=== PATIENT | female | born 1990 | race Caucasian/White ===

== ENCOUNTER 2017-11-18 14:59 | Emergency (ER) | payer SELFPAY ==
[2017-11-18 15:22] VITALS: BP 110/57
[2017-11-18] MEDS ORDERED: KETOROLAC TROMETHAMINE 60 MG/2 ML SDV IM ONE (16:00)
--- NOTE | 2017-11-18 16:02 | ER Document Report ---
HPI - HPI Patient complains to provider of: dental pain Onset: Other Onset/Duration: Intermittent Quality of pain: Throbbing Severity: Severe Pain Level: 5 Context: Patient states she has had toothache to left lower molar for 1-1/2 weeks. To top right teeth started hurting about a day and a half ago. She has not called a dentist for an appointment. 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 Associated Symptoms: None Exacerbated by: Food Relieved by: Denies Similar symptoms previously: Yes Recently seen / treated by doctor: No - ROS ROS below otherwise negative: Yes Systems Reviewed and Negative: Yes All other systems reviewed and negative - CONSTITUTIONAL Constitutional: DENIES: Fever - EENT EENT: DENIES: Sore Throat, Congestion - NEURO Neurology: DENIES: Headache - CARDIOVASCULAR Cardiovascular: DENIES: Chest pain - RESPIRATORY Respiratory: DENIES: Trouble Breathing - REPRODUCTIVE Reproductive: DENIES: : - DERM Skin Color: Normal Past Medical History - General Information source: Patient - Social History Smoking Status: Current Every Day Smoker Cigarette use (# per day): Yes Chew tobacco use (# tins/day): No Frequency of alcohol use: None Drug Abuse: None Lives with: Spouse/Significant other Family History: DM, Hypertension, Malignancy, Other - father-pancreatitis, ulcer Patient has suicidal ideation: No Patient has homicidal ideation: No Pulmonary Medical History: Reports: Hx Asthma - when she was little Neurological Medical History: Reports: Hx Migraine GI Medical History: Reports: Hx Ulcer - stomach 1 yr ago- reports never treated Psychiatric Medical History: Reports: Hx Anxiety, Hx Bipolar Disorder, Hx Depression, Hx Post Traumatic Stress Disorder Past Surgical History: Reports: Hx Oral Surgery - Immunizations Immunizations up to date: Yes Hx Diphtheria, Pertussis, Tetanus Vaccination: Yes Vertical Provider Document - CONSTITUTIONAL Agree With Documented VS: Yes Exam Limitations: No Limitations General Appearance: WD/WN - INFECTION CONTROL TRAVEL OUTSIDE OF THE [place]. IN LAST 30 DAYS: No - HEENT HEENT: Normal ENT Exam, Normocephalic Mouth Diagram: 1 - decay, no gum swelling 2 - decay, no gum swelling - NECK Neck: Normal Inspection. negative: Lymphadenopathy-Left, Lymphadenopathy-Right - RESPIRATORY Respiratory: Breath Sounds Normal, No Respiratory Distress - CARDIOVASCULAR Cardiovascular: Regular Rate, Regular Rhythm - MUSCULOSKELETAL/EXTREMETIES Musculoskeletal/Extremeties: MAEW - NEURO Level of Consciousness: Awake, Alert, Appropriate - DERM Integumentary: Warm, Dry Course - Vital Signs Vital signs: Temp Pulse Resp BP Pulse Ox 98.3 F 76 110/57 L 99 11/18/17 15:20 11/18/17 15:20 11/18/17 15:20 11/18/17 15:20 Discharge - Discharge Clinical Impression: Pain due to dental caries Condition: Good Disposition: HOME, SELF-CARE Instructions: Clindamycin ([facility]), Toothache ([facility]) Additional Instructions: TOOTHACHE: Your pain is due to dental decay. The tooth must be repaired in order for you to feel better. You will, therefore, be referred to a dentist. We do not have dentists on the staff at [facility]. Severe swelling or drainage around a tooth usually means a dental abscess. This also requires evaluation and treatment by the dentist, but antibiotics may be prescribed while awaiting dental treatment. You should be rechecked immediately if you develop major swelling of the face, increasing pain, a lump in the jaw or gums, headache, difficulty swallowing, or fever. CLINDAMYCIN: You have been given a prescription for the antibiotic clindamycin. It is often prescribed for infections in the mouth, such as dental infections or abscesses, and for skin infections due to MRSA. It's important that you take all the medication, unless instructed otherwise by your physician. Failure to complete the entire course can result in relapse of your condition. Common side effects of antibiotics include nausea, intestinal cramping, or diarrhea. Women may develop vaginal yeast infections, and babies can get yeast (thrush) in the mouth following the use of antibiotics. Contact your physician if you develop significant side effects from this medication. Allergy to this antibiotic can result in hives, wheezing, faintness, or itching. If symptoms of allergy occur, stop the medication and call the doctor. FOLLOW-UP CARE: You have been referred for follow-up care to the dentists listed below. Call the dentists office for an appointment as you were instructed or within the next two days. If you experience worsening or a significant change in your symptoms, notify the physician immediately or return to the Emergency Department at any time for re-evaluation. [facility] [address] [place], [place] [phone] [facility] [address] [place] [address] [facility] [address] [facility] [address] [facility] [address] [email or web address] [address] [place] [address] Tuesday- 8:00am to 5:00 pm Will see patients from other [facility]. Charges based on income and family size and accepts Medicare, Medicaid, and Insurances Will pull molars [facility] [id number] Hours of Operation 8:00 am - 4:30 pm weekdays The following dental offices accept Medicaid: [facility] [address] Villa Dr. Perez Dr. Jacques Dr. Arthur Denny Johnson [place], and [facility] oral surgery Dr. Lopez ([place]) Dr. Cosme ([place]) [facility] Drs. Javier and Bayron ([place]) Dr. Corbett ([place]) [facility] Dr. Cordero ([place]) Drs. Wilson and Scholar ([place]bi Tran) Medicaid Care Line Prescriptions: Clindamycin HCl 150 mg PO QID #28 capsule Ibuprofen 600 mg PO TID PRN #15 tablet PRN Reason: Referrals: [facility] [Outside] - Follow up as needed
[2017-11-18] MEDS ORDERED: LIDOCAINE 2% VISCOUS SOLN 20 ML UDCUP PO ONE (16:06)
== END 2017-11-18 16:22 | disposition home or self-care (01) ==
LOC: ER 14:59
DX: K02.9 Dental caries, unspecified (principal); F17.210 Nicotine dependence, cigarettes, uncomplicated
CPT/HCPCS: 99282; 96372; J1885; J3490

== ENCOUNTER 2018-03-13 16:38 | Emergency (ER) | payer SELFPAY ==
[2018-03-13] MEDS ORDERED: NORMAL SALINE 1000 ML 1,000 ML IV ONE (16:55)
[2018-03-13] MEDS ORDERED: PIPERACILLIN/TAZOBACTAM 4.5 GM VIAL IV ONE (16:55)
--- NOTE | 2018-03-13 17:05 | ER Document Report ---
ED Medical Screen (RME) - General Chief Complaint: Other Stated Complaint: SWOLLEN LEFT ANKLE/RADIATING PAIN UP BODY Time Seen by Provider: 03/13/18 17:03 Notes: 27-year-old female presents to the ER with a red swollen ankle. Patient is having fever and rapid heart rate. Patient stated sometimes she can be very anxious. However she states she feels terrible she aches all over she states also she has some shoulder pain on the left and some chest discomfort. She denies any illicit drug use. Denies abdominal pain. Feels very warm having hot flashes than chills. TRAVEL OUTSIDE OF THE U.S. IN LAST 30 DAYS: No - Related Data Allergies/Adverse Reactions: cephalexin monohydrate [From Keflex] Allergy (Verified 10/24/15 08:39) promethazine HCl [From Phenergan] Allergy (Verified 10/24/15 08:39) rash Past Medical History - Past Medical History Cardiac Medical History: Denies: Hx Coronary Artery Disease, Hx Hypertension Pulmonary Medical History: Reports: Hx Asthma - when she was little Denies: Hx Tuberculosis Neurological Medical History: Reports: Hx Migraine. Denies: Hx Seizures Endocrine Medical History: Denies: Hx Diabetes Mellitus Type 1, Hx Diabetes Mellitus Type 2 Renal/ Medical History: Denies: Hx Peritoneal Dialysis GI Medical History: Reports: Hx Ulcer - stomach 1 yr ago- reports never treated Skin Medical History: Denies Hx MRSA Psychiatric Medical History: Reports: Hx Anxiety, Hx Bipolar Disorder, Hx Depression, Hx Post Traumatic Stress Disorder Past Surgical History: Reports: Hx Oral Surgery. Denies: Hx Hysterectomy, Hx Pacemaker - Immunizations Immunizations up to date: Yes Hx Diphtheria, Pertussis, Tetanus Vaccination: Yes Physical Exam - Vital signs Vitals: Temp Pulse Resp BP Pulse Ox 102.8 F H 141 H 20 120/79 100 03/13/18 16:44 03/13/18 16:44 03/13/18 16:44 03/13/18 16:44 03/13/18 16:44 - Notes Notes: Left ankle has cellulitis extending from the dorsum of the foot all the way up to just above the ankle. It is warm to touch I feel no area of fluctuance. There are strong dorsalis pedis pulses this area is very hot and warm to touch Course - Re-evaluation Re-evalutation: 03/13/18 17:05 Patient obviously has cellulitis fever and tachycardia. The patient does have SIRS criteria. We will start the sepsis protocol. We will do empiric Zosyn. - Vital Signs Vital signs: Temp Pulse Resp BP Pulse Ox 102.8 F H 141 H 20 120/79 100 03/13/18 16:44 03/13/18 16:44 03/13/18 16:44 03/13/18 16:44 03/13/18 16:44
--- NOTE | 2018-03-13 17:35 | RADIOLOGY REPORT (SQ) ---
EXAM DESCRIPTION: CHEST SINGLE VIEW COMPLETED DATE/TIME: 03/13/2018 5:20 pm REASON FOR STUDY: fever COMPARISON: 07/11/2013 EXAM PARAMETERS: NUMBER OF VIEWS: One view. TECHNIQUE: Single frontal radiographic view of the chest acquired. RADIATION DOSE: NA LIMITATIONS: None. FINDINGS: LUNGS AND PLEURA: Rounded areas of opacification are seen in both upper lobes and in the r ight lung laterally. MEDIASTINUM AND HILAR STRUCTURES: No masses. Contour normal. HEART AND VASCULAR STRUCTURES: Heart normal in size. Normal vasculature. BONES: No acute findings. HARDWARE: None in the chest. OTHER: No other significant finding. IMPRESSION: Multicentric pneumonia. Possible septic emboli? TECHNICAL DOCUMENTATION: JOB ID: [id number] [employer]- All Rights Reserved Reading location - IP/workstation name: [email or web address]
[2018-03-13 19:08] LABS: VENOUS BLOOD BASE EXCESS 1.2 mmol/L; VENOUS BLOOD HCO3 27.2 mmol/L (20-32); VENOUS BLOOD PCO2 47.9 mmHg (35-63); VENOUS BLOOD PH 7.37 (7.30-7.42)
[2018-03-13 19:14] LABS: HEMATOCRIT 41.5 % (36.0-47.0); INTERNATIONAL RATION (INR) 1.04; MEAN CORPUSCULAR HGB CONC 33.8 g/dL (32.0-36.0); MEAN CORPUSCULAR VOLUME 95 fl (80-97); PLATELET COUNT 105 10^3/uL (150-450); PROTHROMBIN TIME 14.1 SEC (11.4-15.4); RED BLOOD COUNT 4.39 10^6/uL (3.72-5.28); RED CELL DISTRIBUTION WIDTH 14.5 % (11.5-14.0); WHITE BLOOD COUNT 11.3 10^3/uL (4.0-10.5)
[2018-03-13] MEDS ORDERED: VANCOMYCIN HCL INJ 1000 MG VIAL IV ONE (19:25)
[2018-03-13] MEDS ORDERED: HYDROMORPHONE HCL INJ/PF 2 MG/ML AMPULE IV ONE (19:29)
[2018-03-13] MEDS ORDERED: ONDANSETRON HCL INJ/PF 4 MG/2 ML SDV IV ONE (19:29)
[2018-03-13 19:33] LABS: ALANINE AMINOTRANSFERASE 98 U/L (9-52); ALBUMIN 3.5 g/dL (3.5-5.0); ALKALINE PHOSPHATASE 86 U/L (38-126); ANION GAP 14 (5-19); ASPARTATE AMINO TRANSFERASE 49 U/L (14-36); BILIRUBIN,DIRECT 0.4 mg/dL (0.0-0.4); BLOOD UREA NITROGEN 7 mg/dL (7-20); CALCIUM 8.7 mg/dL (8.4-10.2); CARBON DIOXIDE 22 mmol/L (22-30); CHLORIDE 96 mmol/L (98-107); GLUCOSE 113 mg/dL (75-110); POTASSIUM 3.5 mmol/L (3.6-5.0); SODIUM 132.4 mmol/L (137-145); TOTAL PROTEIN 7.2 g/dL (6.3-8.2)
--- NOTE | 2018-03-13 19:39 | ER Document Report ---
ED General - General Chief Complaint: Ankle Pain Stated Complaint: SWOLLEN LEFT ANKLE/RADIATING PAIN UP BODY Time Seen by Provider: 03/13/18 17:03 TRAVEL OUTSIDE OF THE U.[place]. IN LAST 30 DAYS: No - HPI Notes: 27-year-old female with history of IV drug use presents with pain, redness, and swelling in her left ankle that she noticed yesterday. She states her last IV drug use was 1 month ago. She was "roughhousing" and reports pain to her left arm today. She has some bruising noted to her forearm. She reports diffuse pain to her entire left arm. She denies any chest pain or shortness of breath. She has had chills, but denies any documented fevers. Denies pain with urination. She has nausea without vomiting. No abdominal pain or diarrhea. Denies any injuries to her ankle. No bug bites. Denies injecting drugs into her foot or ankle. - Related Data Allergies/Adverse Reactions: cephalexin monohydrate [From Keflex] Allergy (Verified 10/24/15 08:39) promethazine HCl [From Phenergan] Allergy (Verified 10/24/15 08:39) rash Past Medical History - Social History Smoking Status: Current Every Day Smoker Chew tobacco use (# tins/day): No Frequency of alcohol use: None Drug Abuse: Marijuana, Other - IV drug use Family History: DM, Hypertension, Malignancy, Other - father-pancreatitis, ulcer Patient has suicidal ideation: No Patient has homicidal ideation: No - Past Medical History Cardiac Medical History: Denies: Hx Coronary Artery Disease, Hx Hypertension Pulmonary Medical History: Reports: Hx Asthma - when she was little Denies: Hx Tuberculosis Neurological Medical History: Reports: Hx Migraine. Denies: Hx Seizures Endocrine Medical History: Denies: Hx Diabetes Mellitus Type 1, Hx Diabetes Mellitus Type 2 Renal/ Medical History: Denies: Hx Peritoneal Dialysis GI Medical History: Reports: Hx Ulcer - stomach 1 yr ago- reports never treated Skin Medical History: Denies Hx MRSA Psychiatric Medical History: Reports: Hx Anxiety, Hx Bipolar Disorder, Hx Depression, Hx Post Traumatic Stress Disorder Past Surgical History: Reports: Hx Oral Surgery. Denies: Hx Hysterectomy, Hx Pacemaker - Immunizations Immunizations up to date: Yes Hx Diphtheria, Pertussis, Tetanus Vaccination: Yes Review of Systems - Review of Systems Notes: Constitutional: Positive for chills. No documented fever HENT: Negative for sore throat. Eyes: Negative for visual changes. Cardiovascular: Negative for chest pain. Respiratory: Negative for shortness of breath. Gastrointestinal: Negative for abdominal pain, vomiting or diarrhea. Positive for nausea Genitourinary: Negative for dysuria. Musculoskeletal: Negative for back pain. Positive for pain and swelling to left ankle. Positive for pain entire left arm. Skin: Positive for skin lesions Neurological: Positive for headache. No focal weakness or numbness 10 point ROS negative except as marked above and in HPI. Physical Exam - Vital signs Vitals: Temp Pulse Resp BP Pulse Ox 102.8 F H 141 H 20 120/79 100 03/13/18 16:44 03/13/18 16:44 03/13/18 16:44 03/13/18 16:44 03/13/18 16:44 - Notes Notes: PHYSICAL EXAMINATION: GENERAL: Well-appearing, well-nourished. Appears older than stated age. HEAD: Atraumatic, normocephalic. EYES: Pupils equal round and reactive to light, extraocular movements intact, conjunctiva are normal. ENT: nares patent, oropharynx clear without exudates. Moist mucous membranes. NECK: Normal range of motion, supple without lymphadenopathy LUNGS: Breath sounds clear to auscultation bilaterally and equal. No wheezes rales or rhonchi. HEART: Tachycardic rate. Normal rhythm. No chest wall tenderness. ABDOMEN: Soft, nontender, normoactive bowel sounds. No guarding, no rebound. No masses appreciated. EXTREMITIES: Pain to entire left arm. Patient resists any movement of shoulder , elbow, or hand. She has no swelling or erythema appreciated. No crepitus. Patient has erythema, warmth, and swelling to left lateral malleolus. Any range of motion of ankle produces pain. Strong palpable pulses. No streaking appreciated upper leg. NEUROLOGICAL: Cranial nerves grossly intact. Normal speech, normal gait. Normal sensory and motor exams. PSYCH: Anxious, uncooperative. SKIN: Cellulitis left ankle as noted. Multiple areas of scarring consistent with IV drug use. Several small pustules appreciated near buttocks. Course - Re-evaluation Re-evalutation: 03/13/18 19:38 Patient febrile and tachycardic. Chest x-ray suspicious for septic pulmonary emboli. Bedside ultrasound suspicious for tricuspid valve vegetation from endocarditis. X-ray left ankle and shoulder ordered. CT chest ordered. IV antibiotics Zosyn and vancomycin ordered. 3 blood cultures ordered. 03/13/18 22:52 Patient refusing any further attempts at IV placement. CT will not perform CT angiogram using left EJ. Patient also has urinary tract infection. X-rays of ankle and shoulder are unremarkable. Pain improved. Discussed with Dr. Tsai, mud mill tender, at [facility] regarding concern for tricuspid valve vegetation and endocarditis as a source of infection. He accepted patient in transfer under Dr. Maldonado. - Vital Signs Vital signs: Temp Pulse Resp BP Pulse Ox 98.4 F 141 H 20 120/79 100 03/13/18 22:11 03/13/18 16:44 03/13/18 16:44 03/13/18 16:44 03/13/18 16:44 - Laboratory Result Diagrams: 03/13/18 18:53 03/13/18 18:53 Laboratory results interpreted by me: 03/13/18 03/13/18 03/13/18 18:52 18:53 18:53 WBC 11.3 H RDW 14.5 H Plt Count 105 L Band Neutrophils % 6 H Lymphocytes % (Manual) 9 L Monocytes % (Manual) 14 H Abs Neuts (Manual) 8.7 H Abs Monocytes (Manual) 1.6 H Sodium 132.4 L Potassium 3.5 L Chloride 96 L Creatinine 0.47 L Glucose 113 H POC Glucose 111 H AST 49 H ALT 98 H Urine Blood Urine Urobilinogen Ur Leukocyte Esterase 03/13/18 19:10 WBC RDW Plt Count Band Neutrophils % Lymphocytes % (Manual) Monocytes % (Manual) Abs Neuts (Manual) Abs Monocytes (Manual) Sodium Potassium Chloride Creatinine Glucose POC Glucose AST ALT Urine Blood SMALL H Urine Urobilinogen 4.0 H Ur Leukocyte Esterase MODERATE H Procedures - Additional Procedures IV insertion Additional Procedures: IV insertion - Left external jugular 20 G peripheral IV placed without difficulty under sterile conditions. Critical Care Note - Critical Care Note Total time excluding time spent on procedures (mins): 45 - Critical care time spent obtaining history from patient or surrogate, discussions with consultants , development of treatment plan with patient or surrogate, evaluation of patient 's response to treatment, examination of patient, ordering and performing treatments and interventions, ordering and review of laboratory studies, re- evaluation of patient's condition, ordering and review of radiographic studies and review of old charts Discharge - Discharge Clinical Impression: Pulmonary infiltrate Endocarditis Qualifiers: Endocarditis type: infective Infective endocarditis organism: unspecified organism Chronicity: acute Qualified Code(s): I33.0 - Acute and subacute infective endocarditis Cellulitis Qualifiers: Site of cellulitis: extremity Site of cellulitis of extremity: lower extremity Laterality: left Qualified Code(s): L03.116 - Cellulitis of left lower limb Condition: Fair Disposition: [facility]
[2018-03-13 19:47] LABS: APPEARANCE,URINE SLIGHTLY-CLOUDY; BILIRUBIN,URINE NEGATIVE (NEGATIVE); COLOR,URINE YELLOW; GLUCOSE, URINE NEGATIVE (NEGATIVE); KETONES,URINE NEGATIVE (NEGATIVE); LEUKOCYTE ESTERASE,URINE MODERATE (NEGATIVE); NITRITE,URINE NEGATIVE (NEGATIVE); PROTEIN,URINE NEGATIVE (NEGATIVE)
[2018-03-13 19:52] LABS: ABSOLUTE MONOCYTES # (MANUAL) 1.6 10^3/uL (0.1-1.4); ABSOLUTE NEUTROPHILS# (MANUAL) 8.7 10^3/uL (1.7-8.2); BAND NEUTROPHILS % (MANUAL) 6 % (3-5); BASOPHILS % (MANUAL) 0 % (0-2); EOSINOPHILS % (MANUAL) 0 % (0-6); LYMPHOCYTES % (MANUAL) 9 % (13-45); MONOCYTES % (MANUAL) 14 % (3-13); SEGMENTED NEUTROPHILS % (MAN) 71 % (42-78); TOTAL CELLS COUNTED 100
[2018-03-13 19:53] LABS: OVALOCYTES SLIGHT; TEAR DROP CELLS SLIGHT; TOXIC VACUOLATION PRESENT
[2018-03-13 19:54] LABS: PLATELET COMMENT DECREASED
[2018-03-13 19:56] LABS: NT PRO BNP 78 pg/mL (<125)
[2018-03-13 19:59] LABS: TROPONIN I < 0.012 ng/mL
[2018-03-13] MEDS ORDERED: PIPERACILLIN/TAZOBACTAM 3.375 GM VIAL IV ONE (20:23)
--- NOTE | 2018-03-13 20:31 | EKG REPORT ---
SEVERITY:- BORDERLINE ECG - SINUS TACHYCARDIA BORDERLINE T ABNORMALITIES, INFERIOR LEADS : Confirmed by: iMles Ayala MD 13-Mar-2018 20:31:00
--- NOTE | 2018-03-13 21:11 | RADIOLOGY REPORT (SQ) ---
EXAM DESCRIPTION: ANKLE LEFT AP/LATERAL COMPLETED DATE/TIME: 03/13/2018 8:47 pm REASON FOR STUDY: Left ankle pain and swelling COMPARISON: 09/27/2012 NUMBER OF VIEWS: Two views. TECHNIQUE: AP and lateral radiographic images acquired of the left ankle. LIMITATIONS: None. FINDINGS: MINERALIZATION: Normal. BONES: No acute fracture or dislocation. No worrisome bone lesions. JOINTS: No effusions. SOFT TISSUES: No soft tissue swelling. No foreign body. OTHER: No other significant finding. IMPRESSION: NEGATIVE STUDY OF THE LEFT ANKLE. NO RADIOGRAPHIC EVIDENCE OF ACUTE INJURY. TECHNICAL DOCUMENTATION: JOB ID: [id number] [employer]- All Rights Reserved Reading location - IP/workstation name: [email or web address]
--- NOTE | 2018-03-13 21:11 | RADIOLOGY REPORT (SQ) ---
EXAM DESCRIPTION: SHOULDER LEFT 2 OR MORE VIEWS COMPLETED DATE/TIME: 03/13/2018 8:47 pm REASON FOR STUDY: Left shoulder pain COMPARISON: None. NUMBER OF VIEWS: Three views. TECHNIQUE: Internal rotation, external rotation, and Y view images acquired of the left shoulder. LIMITATIONS: None. FINDINGS: MINERALIZATION: Normal. BONES: No acute fracture or dislocation. No worrisome bone lesions. JOINTS: No dislocation. VISUALIZED LUNGS AND RIBS: No pneumothorax. No rib fracture. SOFT TISSUES: No radiopaque foreign body. OTHER: No other significant finding. IMPRESSION: NEGATIVE STUDY OF THE LEFT SHOULDER. NO RADIOGRAPHIC EVIDENCE OF ACUTE INJURY. TECHNICAL DOCUMENTATION: JOB ID: [id number] [employer]- All Rights Reserved Reading location - IP/workstation name: [email or web address]
[2018-03-13] MEDS ORDERED: ACETAMINOPHEN 325 MG TABLET PO ONE (21:26)
[2018-03-13 21:31] LABS: URINE BARBITURATES SCREEN NEGATIVE; URINE BENZODIAZEPINES SCREEN NEGATIVE; URINE COCAINE SCREEN NEGATIVE; URINE MARIJUANA (THC) SCREEN NEGATIVE; URINE METHADONE SCREEN NEGATIVE; URINE PHENCYCLIDINE SCREEN NEGATIVE
[2018-03-13] MEDS ORDERED: LORAZEPAM INJ 2 MG/1 ML VIAL IV ONE (22:10)
--- NOTE | 2018-03-13 23:33 | RADIOLOGY REPORT (SQ) ---
EXAM DESCRIPTION: CT CHEST WITH IV CONTRAST COMPLETED DATE/TME: 03/13/2018 19:29 CLINICAL HISTORY: 27 years Female, Septic pulmonary emboli Comparison: None. Technique: IV contrast. Coronal and sagittal reformat. This exam was performed according to our departmental dose-optimization program, which includes automated exposure control, adjustment of the mA and/or kV according to patient size and/or use of iterative reconstruction technique. [facility]: Dose Right [facility]: CareDose [facility]: Dose Right [facility]: Teradose 4D [facility]: [employer] LIMITATIONS: None Findings: Multifocal bilateral subpleural wedge-shaped opacities and nodules with some cavitation suggestive of septic emboli. Minimal left pleural effusion. Inferior neck, axillae, mediastinum, airway, lymphatics, heart, vasculature, upper abdomen, and musculoskeleton appear otherwise unremarkable. Impression: Septic pulmonary emboli pattern.Differential etiologies include infectious, inflammatory, and neoplastic processes.
[2018-03-14] MEDS ORDERED: HYDROMORPHONE HCL INJ/PF 2 MG/ML AMPULE IV ONE ×3 (03:20→13:56)
[2018-03-14] MEDS ORDERED: HEPARIN SOD (PORCINE) 1,000 UNIT/ML 10 ML VIAL IV ONE (13:06)
[2018-03-14] MEDS ORDERED: HEPARIN SODIUM,PORCINE/D5W 25,000 UNIT/250 ML RTUINJ IV PRN (13:06)
--- NOTE | 2018-03-14 13:08 | ER Document Report ---
Doctor's Note Notes: 03/14/18 13:07 27-year-old female. Pending transfer at this time. Noted to have pulmonary embolism. Noted also that could be due to endocarditis. Discussed case with the radiologist. I am going to go ahead and order an echo as we are waiting for transport. I am also going to start patient on anticoagulation therapy to be safe. Patient is requiring hourly doses of high amount of narcotics. I have just been told that it would likely be greater than 24 hours still until patient has a bed. Will call other facilities to see if we can facilitate a quicker transfer at this time.
[2018-03-14] MEDS ORDERED: HEPARIN SODIUM,PORCINE/D5W 25,000 UNIT/250 ML RTUINJ IV ONE (13:14)
[2018-03-14] MEDS ORDERED: PIPERACILLIN/TAZOBACTAM 3.375 GM VIAL IV SCH ×2 (14:15→15:00)
[2018-03-14] MEDS ORDERED: RINGERS SOLUTION,LACTATED 1,000 ML IV ONE (14:17)
[2018-03-14] MEDS ORDERED: ONDANSETRON HCL INJ/PF 4 MG/2 ML SDV IV PRN (14:27)
[2018-03-14] MEDS ORDERED: LORAZEPAM INJ 2 MG/1 ML VIAL IV PRN (14:27)
[2018-03-14] MEDS ORDERED: HYDROMORPHONE HCL INJ/PF 2 MG/ML AMPULE IV PRN (14:27)
[2018-03-14] MEDS ORDERED: VANCOMYCIN HCL INJ 1000 MG VIAL IV SCH ×2 (14:30)
[2018-03-14] MEDS ORDERED: ACETAMINOPHEN 325 MG TABLET PO ONE (15:28)
[2018-03-14 15:33] LABS: HEMATOCRIT 40.2 % (36.0-47.0); HEMOGLOBIN 13.5 g/dL (12.0-15.5); MEAN CORPUSCULAR HEMOGLOBIN 31.7 pg (27.0-33.4); MEAN CORPUSCULAR HGB CONC 33.5 g/dL (32.0-36.0); MEAN CORPUSCULAR VOLUME 95 fl (80-97); PLATELET COUNT 188 10^3/uL (150-450); RED BLOOD COUNT 4.25 10^6/uL (3.72-5.28); WHITE BLOOD COUNT 13.4 10^3/uL (4.0-10.5)
--- NOTE | 2018-03-14 15:40 | ER Document Report ---
Doctor's Note Notes: 03/14/18 15:34 Patient is still awaiting transfer. She has had a slight recurrence of fever to 100.1. Treated with Tylenol. 3 separate blood cultures positive for gram- positive cocci in clusters. Urine culture positive for gram-negative rods. Standing orders written for Zosyn and vancomycin as well as Ativan, Dilaudid, and Zofran. Fluids continued as patient continues to be tachycardic with borderline blood pressure around 100 systolic. Patient started on heparin this morning. Heparin discontinued as there is limited available data sets suggest neither anti-coagulant therapy nor aspirin to reduce the risk of embolism in patients with infective endocarditis. Called of [facility] and patient still on the waiting list. Called [facility] and discussed with Rosa Teresa, hospitalist who graciously accepted patient to the PCU. Patient and family updated. Patient stable for transfer. Patient continues to be tachypneic, lungs clear. No murmur appreciated. No significant change in left ankle erythema and swelling. Patient currently sedated from Ativan. 03/14/18 15:37 Temp Pulse Resp BP BP Pulse Ox 03/14/18 15:00 30 H 97 03/14/18 14:37 100.1 F 03/14/18 14:31 30 H 136/59 H 96 03/14/18 14:30 47 H 95 03/14/18 14:01 33 H 116/52 L 99 03/14/18 14:00 38 H 98 03/14/18 13:31 43 H 124/79 99 03/14/18 13:30 34 H 100 03/14/18 13:02 32 H 123/88 H 99 03/14/18 13:01 41 H 98 03/14/18 13:00 22 H 100 03/14/18 12:31 34 H 103/69 98 03/14/18 12:30 41 H 98 03/14/18 12:01 32 H 111/63 99 03/14/18 12:00 27 H 03/14/18 11:31 35 H 100/58 L 98 03/14/18 11:30 41 H 100 03/14/18 11:01 45 H 120/66 96 03/14/18 11:00 38 H 98 03/14/18 10:32 23 H 126/73 H 99 03/14/18 10:31 22 H 100 03/14/18 10:01 23 H 132/92 H 100 03/14/18 10:00 23 H 96 03/14/18 09:31 45 H 128/83 H 97 03/14/18 09:30 46 H 98 03/14/18 09:21 36 H 137/76 H 99 03/14/18 09:20 27 H 100 03/14/18 09:00 23 H 94 03/14/18 08:33 24 H 137/79 H 98 03/14/18 08:00 31 H 99 03/14/18 07:05 24 H 137/79 H 98 03/14/18 07:04 16 98 03/14/18 07:00 28 H 95 03/14/18 06:00 37 H 100 03/14/18 05:00 32 H 97 03/14/18 04:00 31 H 96 03/14/18 03:00 20 95 03/14/18 02:32 20 127/84 H 95 03/14/18 02:31 21 H 03/14/18 02:00 20 93 03/14/18 01:00 21 H 03/14/18 00:53 98.4 F 03/14/18 00:49 23 H 124/73 03/14/18 00:48 23 H 03/14/18 00:02 21 H 127/113 H 03/14/18 00:01 17 100 03/14/18 00:00 18 03/13/18 22:11 98.4 F 03/13/18 22:00 19 03/13/18 16:44 102.8 F H 141 H 20 120/79 100 03/14/18 15:40 Abnormal - 24 hr 03/13/18 03/13/18 03/13/18 18:52 18:53 18:53 WBC 11.3 H RDW 14.5 H Plt Count 105 L Band Neutrophils % 6 H Lymphocytes % (Manual) 9 L Monocytes % (Manual) 14 H Abs Neuts (Manual) 8.7 H Abs Monocytes (Manual) 1.6 H Sodium 132.4 L Potassium 3.5 L Chloride 96 L Creatinine 0.47 L Glucose 113 H POC Glucose 111 H AST 49 H ALT 98 H Urine Blood Urine Urobilinogen Ur Leukocyte Esterase 03/13/18 19:10 WBC RDW Plt Count Band Neutrophils % Lymphocytes % (Manual) Monocytes % (Manual) Abs Neuts (Manual) Abs Monocytes (Manual) Sodium Potassium Chloride Creatinine Glucose POC Glucose AST ALT Urine Blood SMALL H Urine Urobilinogen 4.0 H Ur Leukocyte Esterase MODERATE H Chest X-Ray 03/13/18 16:55 IMPRESSION: Multicentric pneumonia. Possible septic emboli? Ankle X-Ray 03/13/18 19:29 IMPRESSION: NEGATIVE STUDY OF THE LEFT ANKLE. NO RADIOGRAPHIC EVIDENCE OF ACUTE INJURY. Shoulder X-Ray 03/13/18 19:29 IMPRESSION: NEGATIVE STUDY OF THE LEFT SHOULDER. NO RADIOGRAPHIC EVIDENCE OF ACUTE INJURY.
[2018-03-14] MEDS ORDERED: NORMAL SALINE 250 ML IV ONE (16:04)
[2018-03-14] MEDS ORDERED: HEPARIN SOD (PORCINE) 1,000 UNIT/ML 10 ML VIAL IV PRN (16:07)
[2018-03-14 16:10] LABS: ABSOLUTE LYMPHOCYTES# (MANUAL) 1.1 10^3/uL (0.5-4.7); ABSOLUTE MONOCYTES # (MANUAL) 1.3 10^3/uL (0.1-1.4); ABSOLUTE NEUTROPHILS# (MANUAL) 10.9 10^3/uL (1.7-8.2); ANISOCYTOSIS SLIGHT; BAND NEUTROPHILS % (MANUAL) 1 % (3-5); BASOPHILS % (MANUAL) 1 % (0-2); EOSINOPHILS % (MANUAL) 0 % (0-6); LYMPHOCYTES % (MANUAL) 8 % (13-45); MONOCYTES % (MANUAL) 10 % (3-13); PLATELET COMMENT ADEQUATE; PLATELET LARGE PRESENT; SEGMENTED NEUTROPHILS % (MAN) 80 % (42-78); TOTAL CELLS COUNTED 100; TOXIC GRANULATION SLIGHT; TOXIC VACUOLATION PRESENT
[2018-03-14 19:26] VITALS: BP 111/66
== END 2018-03-14 17:20 | disposition short-term general hospital (02) ==
LOC: ER 16:38
DX: I33.0 Acute and subacute infective endocarditis (principal); L03.116 Cellulitis of left lower limb; J18.9 Pneumonia, unspecified organism; N39.0 Urinary tract infection, site not specified; R00.0 Tachycardia, unspecified; R06.82 Tachypnea, not elsewhere classified; S50.10XA Contusion of unspecified forearm, initial encounter; X58.XXXA Exposure to other specified factors, initial encounter; L08.9 Local infection of the skin and subcutaneous tissue, unspecified; R51 Headache; F41.9 Anxiety disorder, unspecified; F12.10 Cannabis abuse, uncomplicated; F19.10 Other psychoactive substance abuse, uncomplicated; M79.602 Pain in left arm; F17.200 Nicotine dependence, unspecified, uncomplicated; Z88.1 Allergy status to other antibiotic agents; Z88.8 Allergy status to other drugs, medicaments and biological substances
CPT/HCPCS: 96376; 93005; 99285; 96361; 96375; 96365; 96366; 96367; 36415; 87040; 87086; 82962; 85025; 85610; 87077; 87088; 80053; 81001; 84484; 87186; 80307; 82803; 83605; 83880; 73600; 71045; 73030; 71260; 93010; J1644 ×2; J1170 ×2; J2060; J2405; J7030; J7050; J3370 ×2; J2543 ×2

== ENCOUNTER 2018-05-31 12:21 | Emergency (ER) | payer SELFPAY ==
[2018-05-31] MEDS ORDERED: CLINDAMYCIN 900 MG/D5W RTU 900 MG/50 ML RTUPB IV ONE (14:43)
--- NOTE | 2018-05-31 14:51 | ER Document Report ---
ED General - General Chief Complaint: Facial Swelling Stated Complaint: SWOLLEN NOSE Time Seen by Provider: 05/31/18 14:31 Mode of Arrival: Ambulatory Information source: Patient, Relative Notes: 27-year-old female with PTSD, bipolar disorder, IV drug abuse presents with complaint of facial swelling that started 1 day prior to arrival. Patient states that she had a small pimple on the bridge of her nose that she popped 2 days ago and yesterday woke up with facial swelling. She denies any fever, chills, purulent drainage from the site. Patient does have a complex history where she was recently admitted for endocarditis at [facility] for over 1 month. Patient states that upon discharge she was doing well. She does admit to occasionally still using heroin. Her last use was a few days ago. She denies any direct injection into her face. TRAVEL OUTSIDE OF THE [place] IN LAST 30 DAYS: No - HPI Onset: Yesterday Onset/Duration: Gradual Quality of pain: Achy Associated symptoms: denies: Fever, Headache, Nausea, Vomiting, Shortness of breath Exacerbated by: Other Relieved by: Denies Similar symptoms previously: No Recently seen / treated by doctor: Yes - Related Data Allergies/Adverse Reactions: cephalexin monohydrate [From Keflex] Allergy (Verified 05/31/18 12:23) promethazine HCl [From Phenergan] Allergy (Verified 05/31/18 12:23) rash vancomycin Allergy (Verified 05/31/18 12:23) Past Medical History - General Information source: Patient, Relative, [facility] Records - Social History Smoking Status: Current Every Day Smoker Chew tobacco use (# tins/day): No Frequency of alcohol use: None Drug Abuse: Heroin, Methamphetamine Lives with: Family Family History: DM, Hypertension, Malignancy, Other - father-pancreatitis, ulcer Patient has suicidal ideation: No Patient has homicidal ideation: No - Past Medical History Cardiac Medical History: Denies: Hx Coronary Artery Disease, Hx Hypertension Pulmonary Medical History: Reports: Hx Asthma - as a child Denies: Hx Tuberculosis Neurological Medical History: Reports: Hx Migraine. Denies: Hx Seizures Endocrine Medical History: Denies: Hx Diabetes Mellitus Type 1, Hx Diabetes Mellitus Type 2 Renal/ Medical History: Denies: Hx Peritoneal Dialysis GI Medical History: Reports: Hx Ulcer - stomach 1 yr ago- reports never treated Skin Medical History: Denies Hx MRSA Psychiatric Medical History: Reports: Hx Anxiety, Hx Bipolar Disorder, Hx Depression, Hx Post Traumatic Stress Disorder Past Surgical History: Reports: Hx Oral Surgery. Denies: Hx Hysterectomy, Hx Pacemaker - Immunizations Immunizations up to date: Yes Hx Diphtheria, Pertussis, Tetanus Vaccination: Yes Review of Systems - Review of Systems Notes: REVIEW OF SYSTEMS: CONSTITUTIONAL : Denies fever, chills, or sweats. Denies recent illness. Denies weight loss, recent hospitalizations. EENT: Denies visual changes, eye pain. Denies sore throat, oral lesions, difficulty swallowing. CARDIOVASCULAR: Denies chest pain. Denies palpitations. Denies lower extremity edema. RESPIRATORY: Denies cough. Denies shortness of breath, wheezing. GASTROINTESTINAL: Denies abdominal pain or distention. Denies nausea, vomiting , or diarrhea. Denies blood in vomitus, stools, or per rectum. Denies black, tarry stools. Denies constipation. GENITOURINARY: Denies difficulty urinating, painful urination, frequency, blood in urine, or vaginal discharge. MUSCULOSKELETAL: Denies back or neck pain or stiffness. Denies joint pain or swelling. SKIN: Denies rash. HEMATOLOGIC : Denies easy bruising or bleeding. LYMPHATIC: Denies swollen glands. NEUROLOGICAL: Denies confusion or altered mental status. Denies loss of consciousness. Denies dizziness or lightheadedness. Denies headache. Denies weakness or paralysis. Denies problems difficulty with ambulation, slurred speech. Denies sensory loss, numbness, or tingling. Denies seizures. PSYCHIATRIC: Denies anxiety or stress. Denies depression, suicidal ideation, or homicidal ideation. Denies visual or auditory hallucinations. Physical Exam - Vital signs Vitals: Temp Pulse Resp BP Pulse Ox 98.3 F 97 14 122/68 100 05/31/18 13:14 05/31/18 13:14 05/31/18 13:14 05/31/18 13:14 05/31/18 13:14 - Notes Notes: PHYSICAL EXAMINATION: GENERAL: Well-appearing, well-nourished and in no acute distress. HEAD: Atraumatic, normocephalic. EYES: Pupils equal round and reactive to light, extraocular movements intact, conjunctiva are normal. ENT: Nares patent, swelling of the nasal bridge with associated forehead swelling, mild erythema, no fluctuance, induration. Oropharynx clear without exudates. Moist mucous membranes. NECK: Normal range of motion, supple without lymphadenopathy LUNGS: Breath sounds clear to auscultation bilaterally and equal. No wheezes rales or rhonchi. HEART: Regular rate and rhythm without murmurs ABDOMEN: Soft, nontender, nondistended abdomen. No guarding, no rebound. No masses appreciated. Female : deferred Musculoskeletal: Normal range of motion, no pitting or edema. No cyanosis. NEUROLOGICAL: Cranial nerves grossly intact. Normal speech, normal gait. Normal sensory, motor exams PSYCH: Normal mood, normal affect. SKIN: Warm, Dry, normal turgor. Course - Re-evaluation Re-evalutation: 27-year-old female presents with complaint of facial swelling that started 2 days prior to arrival. Patient states that she had a small pimple on the bridge of her nose which she popped and the next day noticed swelling of her nose, forehead and under her eyes. She denies any fever, chills, nausea, vomiting. Upon arrival vital signs stable. Lab work and imaging were ordered but not obtained. Because of the patient's history of IV drug use she is a difficult stick and after 2 attempts the patient is now refusing. She is requesting p.o. medications and discharge home. After performing a Medical Screening Examination, I spoke with the patient at length in regards to leaving the hospital against medical advice. I do not believe the patient should leave but the patient is alert oriented x4, understands the risks and benefits of staying and leaving including disability and . Pt understands that she can return at any time for further care and is more than welcome to do so. Pt verbalizes this understanding. 05/31/18 15:29 Patient refusing further IV attempts. She states that she wants medication by mouth and to be discharged home. 05/31/18 15:53 I spoke to the patient again regarding her refusal for further IV attempts. I did make her aware that it is imperative with her history that we are able to obtain blood work and imaging. She is refusing an will sign out AGAINST MEDICAL ADVICE. Patient is alert and oriented and shows capacity and understanding of her situation. Patient was provided clindamycin and discharge instructions. 05/31/18 16:03 06/01/18 12:54 06/01/18 12:56 - Vital Signs Vital signs: Temp Pulse Resp BP Pulse Ox 98.6 F 97 18 124/72 100 05/31/18 16:08 05/31/18 16:08 05/31/18 16:08 05/31/18 16:08 05/31/18 16:08 Discharge - Discharge Clinical Impression: Facial cellulitis, Facial abscess suspected, IV drug abuse Condition: Good Disposition: AGAINST MEDICAL ADVICE Instructions: Cellulitis ([facility]) Additional Instructions: The rash is likely due to infection of your skin. You need to take the antibiotics as prescribed. Do not stop even if the rash goes away until you have completed all the antibiotics. The area of redness was traced out here in the emergency department with a marking pen. You need to return to emergency department if the redness spreads outside of this area by more than 2 cm in any direction. You should also return if you develop fevers with temperature greater than 101, persistent vomiting, worsening pain, or have any other symptoms that are concerning to you. Follow up with your [id number] hours for further care or return to the ED IMMEDIATELY if symptoms worsen or you have any concerns. If you cannot afford to follow up with your primary care physician a list of low cost clinics have been provided at the end of your discharge papers as well. Most prescribed medications have multiple side effects. The safest thing to do is when filling your prescription speak to your pharmacist regarding possible interactions with your normal home medications and over the counter medications such as Ibuprofen, Tylenol, Benadryl. If you experience any symptoms that cause you discomfort or concern you should discontinue the medication immediately and return to the emergency room or call your primary care physician. After performing a Medical Screening Examination, I spoke with the patient at length in regards to leaving the hospital against medical advice. I do not believe the patient should leave but the patient is alert oriented x4, understands the risks and benefits of staying and leaving including disability and . Pt understands that he can return at any time for further care and is more than welcome to do so. Pt verbalizes this understanding. Prescriptions: Clindamycin HCl [Cleocin 300 mg Capsule] 600 mg PO Q6 #80 cap
[2018-05-31] MEDS ORDERED: CLINDAMYCIN HCL 150 MG CAPSULE PO ONE (15:29)
[2018-05-31 16:12] VITALS: BP 124/72
== END 2018-05-31 16:11 | disposition left against medical advice (07) ==
LOC: ER 12:21
DX: L03.211 Cellulitis of face (principal); F11.10 Opioid abuse, uncomplicated; F15.10 Other stimulant abuse, uncomplicated; F17.200 Nicotine dependence, unspecified, uncomplicated; Z88.1 Allergy status to other antibiotic agents; Z88.8 Allergy status to other drugs, medicaments and biological substances; Z53.20 Procedure and treatment not carried out because of patient's decision for unspecified reasons
CPT/HCPCS: 99282

== ENCOUNTER 2018-11-22 16:01 | Emergency (ER) | payer SELFPAY ==
[2018-11-22 16:10] VITALS: BP 112/63
--- NOTE | 2018-11-22 17:37 | ER Document Report ---
ED General - General Chief Complaint: Skin Problem Stated Complaint: BUMP ON CHIN Time Seen by Provider: 11/22/18 17:26 Mode of Arrival: Ambulatory Information source: Patient TRAVEL OUTSIDE OF THE [place] IN LAST 30 DAYS: No - HPI Patient complains to provider of: Chin abscess Onset: Other - To 3 days ago Onset/Duration: Sudden Severity: Severe Pain Level: 5 Associated symptoms: None Exacerbated by: Denies Relieved by: Denies Similar symptoms previously: Yes Recently seen / treated by doctor: No Notes: 28-year-old female with history of IV drug abuse and endocarditis and sepsis coming in today with chin abscess. States she has had multiple abscesses in the past. Does not want incision and drainage done. Denies fevers and shaking chills. Denies nausea and vomiting. Denies diabetes and other immune compromising diseases. - Related Data Allergies/Adverse Reactions: cephalexin monohydrate [From Keflex] Allergy (Verified 11/22/18 16:04) promethazine HCl [From Phenergan] Allergy (Verified 11/22/18 16:04) rash vancomycin Allergy (Verified 11/22/18 16:04) Past Medical History - General Information source: Patient - Social History Smoking Status: Current Every Day Smoker Drug Abuse: Heroin, Methamphetamine Family History: Reviewed & Not Pertinent, DM, Hypertension, Malignancy, Other - father-pancreatitis, ulcer - Past Medical History Cardiac Medical History: Denies: Hx Coronary Artery Disease, Hx Hypertension Pulmonary Medical History: Reports: Hx Asthma - as a child Denies: Hx Tuberculosis Neurological Medical History: Reports: Hx Migraine. Denies: Hx Seizures Endocrine Medical History: Denies: Hx Diabetes Mellitus Type 1, Hx Diabetes Mellitus Type 2 Renal/ Medical History: Denies: Hx Peritoneal Dialysis GI Medical History: Reports: Hx Ulcer - stomach 1 yr ago- reports never treated Skin Medical History: Denies Hx MRSA Psychiatric Medical History: Reports: Hx Anxiety, Hx Bipolar Disorder, Hx Depression, Hx Post Traumatic Stress Disorder Past Surgical History: Reports: Hx Oral Surgery. Denies: Hx Hysterectomy, Hx P acemaker - Immunizations Immunizations up to date: Yes Hx Diphtheria, Pertussis, Tetanus Vaccination: Yes Review of Systems - Review of Systems Notes: Constitutional: No fevers. No chills. EENT: No eye redness. No eye pain. No ear pain. No sore throat. Cardiovascular: No chest pain. No palpitations. Respiratory: No cough. No shortness of breath. No respiratory distress. Gastrointestinal: No abdominal pain. No nausea, vomiting, or diarrhea. Genitourinary: Atraumatic. No lesions. No pain. No discharge. Musculoskeletal: Atraumatic. No swelling. No deformities. Skin: Positive for abscess on the chin Lymphatic: No swollen lymph nodes. Neurologic: No headache. No syncope. Psychiatric: No suicidal or homicidal ideation. Physical Exam - Vital signs Vitals: Temp Pulse Resp BP Pulse Ox 98.2 F 104 H 18 112/63 100 11/22/18 16:09 11/22/18 16:09 11/22/18 16:09 11/22/18 16:09 11/22/18 16:09 - Notes Notes: General: Well-developed, well-nourished. In no acute distress. Non-toxic appearing. Cardiac: Well-perfused. Regular rate and rhythm. No murmurs, rubs, or gallops. Pulmonary: No respiratory distress. No cyanosis. Bilateral lung fiels are clear to auscultation. Abdominal: Non-distended. Non-rigid. Bowels sounds are present in all four quadrants. No guarding or rebound. HEENT: Head is atraumatic. Conjunctivae not reddened. No tearing. PERRL. EOMI. Orbits atraumatic. No periorbital swelling or erythema. Oropharynx is without erythema, swelling, or exudates. Neck: Supple. No adenopathy. No meningismus. Dermatologic: Large indurated abscess on the chin. No fluctuance. No pustule. Chest: Atraumatic. No chest wall tenderness to palpation. Musculoskeletal: Moves all extremities well. No range of motion deficits. no muscular or joint tenderness. No paraspinal muscle tenderness. no midline spinal tenderness or step-off. Genitourinary: Examination deferred Neurologic: No gross neurologic deficits. Psychiatric: Normal mood. Course - Re-evaluation Re-evalutation: 11/22/18 17:34 Patient requesting no I&D and I agree with her. It is too indurated. We will put her on Bactrim as it does not appear that she has an allergy to this and that should clear it up. She knows to do the hot compresses and try to get it to open and drain on its own. She will return if it becomes a fluctuant abscess and she needs it incised and drained at that time. - Vital Signs Vital signs: Temp Pulse Resp BP Pulse Ox 98.2 F 104 H 18 112/63 100 11/22/18 16:09 11/22/18 16:09 11/22/18 16:09 11/22/18 16:09 11/22/18 16:09 Discharge - Discharge Clinical Impression: Abscess of chin Condition: Good Disposition: HOME, SELF-CARE Instructions: Abscess ([facility]), Trimethoprim-Sulfa ([facility]) Additional Instructions: As we discussed apply steamy washcloth to this region frequently to try to bring it to a head and help it to drain. They return to ED at any time if needed. Prescriptions: Sulfamethoxazole/Trimethoprim [Bactrim Ds Tablet] 1 each PO BID #20 tablet Referrals: [facility] [Provider Group] - Follow up as needed
== END 2018-11-22 17:45 | disposition home or self-care (01) ==
LOC: ER 16:01
DX: L02.01 Cutaneous abscess of face (principal); F17.200 Nicotine dependence, unspecified, uncomplicated; Z88.3 Allergy status to other anti-infective agents
CPT/HCPCS: 99282

== ENCOUNTER 2019-03-31 10:39 | Emergency (ER) | payer SELFPAY ==
[2019-03-31] MEDS ORDERED: KETOROLAC TROMETHAMINE INJ/PF 30 MG/1 ML SDV IV ONE (10:57)
[2019-03-31] MEDS ORDERED: NORMAL SALINE 1000 ML 1,000 ML IV ONE (10:57)
[2019-03-31] MEDS ORDERED: ONDANSETRON HCL INJ/PF 4 MG/2 ML SDV IV ONE (10:58)
--- NOTE | 2019-03-31 11:02 | ER Document Report ---
ED General <COTANAVA - Last Filed: 03/31/19 15:28> - General TRAVEL OUTSIDE OF THE [place] IN LAST 30 DAYS: No <CHEIKH WILHELM - Last Filed: 03/31/19 15:44> - General Chief Complaint: Psych Problem Stated Complaint: SUICIDAL IDEATION Time Seen by Provider: 03/31/19 10:51 - HPI Notes: Patient is a 28-year-old female with a history of major depressive disorder, substance abuse, brought into the emergency department for evaluation after a suicide attempt while in custody in senior care. Evidently she tried to hang herself with her sheet. She denies any hoarseness with her voice, difficulty breathing or swallowing. She has a long-standing history of polysubstance abuse, including heroin. She states her last use was yesterday. She was using extens ively. She also admits to occasional methamphetamine use. She states that she is currently suicidal. She denies any homicidal ideation. No visual auditory hallucination. She denies any psychiatric medications. She states that this time she feels nauseated, has had multiple episodes of diarrhea. She hurts "all over." (CHEIKH WILHELM) - Related Data Allergies/Adverse Reactions: cephalexin monohydrate [From Keflex] Allergy (Verified 11/22/18 16:04) promethazine HCl [From Phenergan] Allergy (Verified 11/22/18 16:04) rash vancomycin Allergy (Verified 11/22/18 16:04) Past Medical History - General Information source: Patient - Social History Smoking Status: Current Some Day Smoker Chew tobacco use (# tins/day): No Drug Abuse: Heroin, Methamphetamine Family History: DM, Hypertension, Malignancy, Other Patient has suicidal ideation: Yes Patient has homicidal ideation: No - Past Medical History Cardiac Medical History: Denies: Hx Coronary Artery Disease, Hx Hypertension Pulmonary Medical History: Reports: Hx Asthma - as a child Denies: Hx Tuberculosis Neurological Medical History: Reports: Hx Migraine. Denies: Hx Seizures Endocrine Medical History: Denies: Hx Diabetes Mellitus Type 1, Hx Diabetes Mellitus Type 2 Renal/ Medical History: Denies: Hx Peritoneal Dialysis GI Medical History: Reports: Hx Ulcer - stomach 1 yr ago- reports never treated Skin Medical History: Denies Hx MRSA Psychiatric Medical History: Reports: Hx Anxiety, Hx Bipolar Disorder, Hx Depression, Hx Post Traumatic Stress Disorder Past Surgical History: Reports: Hx Oral Surgery. Denies: Hx Hysterectomy, Hx Pacemaker - Immunizations Immunizations up to date: Yes Hx Diphtheria, Pertussis, Tetanus Vaccination: Yes <CHEIKH WILHELM - Last Filed: 03/31/19 15:44> Review of Systems - Review of Systems Constitutional: No symptoms reported EENT: No symptoms reported Cardiovascular: No symptoms reported Respiratory: No symptoms reported Gastrointestinal: See HPI Genitourinary: No symptoms reported Musculoskeletal: See HPI Skin: No symptoms reported Neurological/Psychological: See HPI <CHEIKH WILHELM - Last Filed: 03/31/19 15:44> Physical Exam <CHEIKH WILHELM - Last Filed: 03/31/19 15:44> - Vital signs Vitals: Temp Pulse Resp BP Pulse Ox 98.8 F 82 16 129/76 H 100 03/31/19 10:50 03/31/19 10:50 03/31/19 10:50 03/31/19 10:50 03/31/19 10:50 - Notes Notes: Is a 28-year-old female who appears her stated age in no acute distress. She is calm, cooperative with examiner. She is tearful. Vital signs reviewed, please refer to chart. Head is normocephalic, atraumatic. Pupils equal round, reactive to light. Examination of the neck yields a mild amount of erythema consistent with attempted hanging. She has no midline tenderness or step-off. She has mild paraspinal musculature tenderness, as well as tenderness to the anterior strap muscles of the neck bilaterally. No asymmetry, no subcutaneous emphysema.. Heart is regular rate and rhythm. Lungs are clear to auscultation bilaterally. Abdomen is soft, nontender, normoactive bowel sounds throughout. Extremities without cyanosis, clubbing. Posterior calves are nontender. Peripheral pulses are equal. Skin is warm and dry. Patient is awake, alert, neurological exam is nonfocal. (CHEIKH WILHELM) Course - Laboratory Result Diagrams: 03/31/19 12:16 03/31/19 12:16 <NAVA COTA - Last Filed: 03/31/19 15:28> - Laboratory Result Diagrams: 03/31/19 12:16 03/31/19 12:16 - Diagnostic Test Radiology reviewed: Reports reviewed <CHEIKH WILHELM - Last Filed: 03/31/19 15:44> - Re-evaluation Re-evalutation: 03/31/19 11:01 Patient presents emergency department for evaluation. Patient's not only depres sed and suicidal, but certainly suffering from symptoms of withdrawal. She is given fluids, Toradol, Zofran. Psychiatric laboratory investigations for clearance are ordered. Imaging of her cervical spine ordered as well. We will continue to monitor. 03/31/19 15:37 Imaging unremarkable. Laboratory investigations unremarkable. Psychosocial evaluation performed and medication recommendations followed. Given her bipolar disorder history, we will go ahead and start her on Depakote. Patient was medicated with some improvement. She is currently in [facility]'s custody. Behavioral health recommendations include a secure unit. She is feeling improved. We will release her to [facility]'s custody. 03/31/19 15:43 (CHEIKH WILHELM) - Vital Signs Vital signs: Temp Pulse Resp BP Pulse Ox 98.8 F 82 16 129/76 H 100 03/31/19 10:50 03/31/19 10:50 03/31/19 10:50 03/31/19 10:50 03/31/19 10:50 - Laboratory Laboratory results interpreted by me: 03/31/19 03/31/19 12:16 13:33 Chloride 110 H Total Protein 8.4 H Urine Protein 30 H Urine Ketones 20 H Urine Urobilinogen 4.0 H Ur Leukocyte Esterase TRACE H Salicylates < 1.0 L Acetaminophen < 10 L - Diagnostic Test Radiology results interpreted by me: 03/31/19 15:[address] 03/31/19 10:59 IMPRESSION: NO ACUTE OR SIGNIFICANT FINDINGS IN THE CERVICAL SPINE. (CHEIKH WILHELM) Discharge <NAVA COTA - Last Filed: 03/31/19 15:28> <CHEIKH WILHELM - Last Filed: 03/31/19 15:44> - Discharge Clinical Impression: Bipolar 1 disorder, Opiate withdrawal Condition: Stable Disposition: HOME, SELF-CARE Additional Instructions: You have been evaluated both medical and behavioral health teams and have been deemed cleared to return to [facility]. Recommendations are for continued suicide observation. Medication recommendations have been provided and a prescription for Depakote 250 mg twice daily has been provided; please take as directed. If the [facility] is unable to provide the level of care, or concerns increase, it is recommended for higher level of supervision at [facility]. DEPRESSION: Your evaluation reveals that you have mental depression. While symptoms may be vague, they often include disturbance of sleep, fatigue, loss of appetite, and general loss of interest in life. While depression may be a side effect of drugs, or a reaction to a major change in your life, many cases have no known cause. If depression is acute, and related to a major loss in your life, you can expect it to clear completely with time. If you have been depressed a long time, are prone to repeated bouts of depression or low mood, or have been thinking of suicide, get help. Depression can be treated with anti-depressant medication and counselling. Long-term depression will often take a few weeks to clear, even with appropriate medication. Follow-up care is important. SUICIDAL IDEATION: Suicidal ideation is a common medical term for thoughts about suicide, which may be as detailed as a formulated plan, without the suicidal act itself. Although most people who undergo suicidal ideation do not commit suicide, some go on to make suicide attempts. The range of suicidal ideation varies greatly from fleeting to detailed planning, role playing, and unsuccessful attempts. While thoughts about suicide are common, most people do not carry out serious actions to commit suicide. Based upon your evaluation and discussion with you, we do not believe you are currently at risk to act upon your thoughts of suicide. You have agreed to return to the Emergency Department, at any time, if you feel inclined to act upon your suicidal thoughts. FOLLOW-UP CARE: If you have been referred to a physician for follow-up care, call the physicians office for an appointment as you were instructed or within the next two days. If you experience worsening or a significant change in your symptoms, notify the physician immediately or return to the Emergency Department at any time for re-evaluation. Prescriptions: Divalproex Sodium [Depakote] 250 mg PO BID #30 tablet.
[2019-03-31 13:04] LABS: ABSOLUTE LYMPHOCYTES (AUTO) 2.2 10^3/uL (0.5-4.7); ABSOLUTE MONOCYTES (AUTO) 0.5 10^3/uL (0.1-1.4); ABSOLUTE NEUT (AUTO) 4.9 10^3/uL (1.7-8.2); BASOPHILS % (AUTO) 0.3 % (0-2); EOSINOPHILS % (AUTO) 0.1 % (0-6); HEMATOCRIT 39.9 % (36.0-47.0); HEMOGLOBIN 13.4 g/dL (12.0-15.5); LYMPHOCYTES % (AUTO) 28.7 % (13-45); MEAN CORPUSCULAR HGB CONC 33.6 g/dL (32.0-36.0); MEAN CORPUSCULAR VOLUME 89 fl (80-97); MONOCYTES % (AUTO) 6.7 % (3-13); PLATELET COUNT 251 10^3/uL (150-450); RED BLOOD COUNT 4.47 10^6/uL (3.72-5.28); SEGMENTED NEUTROPHILS % (AUTO) 64.2 % (42-78); TOTAL CELLS COUNTED % (AUTO) 100 %; WHITE BLOOD COUNT 7.7 10^3/uL (4.0-10.5)
[2019-03-31 13:13] LABS: ALBUMIN 4.3 g/dL (3.5-5.0); ALKALINE PHOSPHATASE 73 U/L (38-126); ANION GAP 8 (5-19); ASPARTATE AMINO TRANSFERASE 34 U/L (14-36); BILIRUBIN,DIRECT 0.3 mg/dL (0.0-0.4); BILIRUBIN,TOTAL 0.9 mg/dL (0.2-1.3); BLOOD UREA NITROGEN 13 mg/dL (7-20); CALCIUM 9.7 mg/dL (8.4-10.2); CARBON DIOXIDE 24 mmol/L (22-30); CHLORIDE 110 mmol/L (98-107); GLUCOSE 93 mg/dL (75-110); POTASSIUM 3.9 mmol/L (3.6-5.0); TOTAL PROTEIN 8.4 g/dL (6.3-8.2)
[2019-03-31 13:18] LABS: ACETAMINOPHEN < 10 ug/mL (10-30); ALCOHOL < 10 mg/dL (NONE DETECTED); SALICYLATE < 1.0 mg/dL (2.0-20.0)
--- NOTE | 2019-03-31 13:21 | RADIOLOGY REPORT (SQ) ---
EXAM DESCRIPTION: CT CERVICAL SPINE WITHOUT COMPLETED DATE/TIME: 03/31/2019 1:10 pm REASON FOR STUDY: attempted hanging COMPARISON: None. TECHNIQUE: Axial images acquired through the cervical spine without intravenous contrast. Images re viewed with lung, soft tissue and bone windows. Reconstructed coronal and sagittal MPR images review ed. Images stored on PACS. All CT scanners at this facility use dose modulation, iterative reconstruction, and/or weight based d osing when appropriate to reduce radiation dose to as low as reasonably achievable (ALARA). [facility]: Dose Right [facility]: CareDose [facility]: Dose Right [facility]: Teradose 4D [facility]: [employer] RADIATION DOSE: CT Rad equipment meets quality standard of care and radiation dose reduction techniq ues were employed. CTDIvol: 18.7 mGy. DLP: 416 mGy-cm. mGy. LIMITATIONS: None. FINDINGS: ALIGNMENT: Anatomic. MINERALIZATION: Normal. VERTEBRAL BODIES: No fractures or dislocation. DISCS: No significant disc disease. FACETS, LATERAL MASSES, POSTERIOR ELEMENTS: No fractures. No dislocation. No acute findings. HARDWARE: None in the spine. VISUALIZED RIBS: No fractures. LUNG APICES AND SOFT TISSUES: No significant or acute findings. OTHER: No other significant finding. IMPRESSION: NO ACUTE OR SIGNIFICANT FINDINGS IN THE CERVICAL SPINE. TECHNICAL DOCUMENTATION: JOB ID: [id number] Quality ID # [id number]: Final reports with documentation of one or more dose reduction techniques (e.g., Au tomated exposure control, adjustment of the mA and/or kV according to patient size, use of iterative reconstruction technique) 2010 [employer]- All Rights Reserved Reading location - IP/workstation name: [email or web address]
[2019-03-31 13:52] LABS: APPEARANCE,URINE SLIGHTLY-CLOUDY; BILIRUBIN,URINE NEGATIVE (NEGATIVE); GLUCOSE, URINE NEGATIVE (NEGATIVE); KETONES,URINE 20 mg/dL (NEGATIVE); LEUKOCYTE ESTERASE,URINE TRACE (NEGATIVE); NITRITE,URINE NEGATIVE (NEGATIVE); PROTEIN,URINE 30 mg/dL (NEGATIVE); URINE SPECIFIC GRAVITY 1.031
[2019-03-31 13:53] LABS: COLOR,URINE DARK YELLOW
[2019-03-31] MEDS ORDERED: ACETAMINOPHEN 325 MG TABLET PO ONE (13:53)
[2019-03-31 14:07] LABS: URINE BARBITURATES SCREEN NEGATIVE; URINE BENZODIAZEPINES SCREEN NEGATIVE; URINE COCAINE SCREEN NEGATIVE; URINE MARIJUANA (THC) SCREEN UNCONFIRMED POSITIVE; URINE METHADONE SCREEN NEGATIVE; URINE PHENCYCLIDINE SCREEN NEGATIVE
--- NOTE | 2019-03-31 14:38 | EKG REPORT ---
SEVERITY:- NORMAL ECG - SINUS RHYTHM : Confirmed by: Miles Ayala MD 31-Mar-2019 14:37:03
[2019-03-31 16:06] VITALS: BP 125/79
== END 2019-03-31 16:06 | disposition home or self-care (01) ==
LOC: ER 10:39
DX: F31.9 Bipolar disorder, unspecified (principal); F11.23 Opioid dependence with withdrawal; F19.10 Other psychoactive substance abuse, uncomplicated; F17.200 Nicotine dependence, unspecified, uncomplicated; J45.909 Unspecified asthma, uncomplicated
CPT/HCPCS: 93005; 99285; 96361; 96374; 96375; 36415; 80307 ×4; 84703; 85025; 80053; 81001; 72125; 93010; J1885; J2405; J7030

== ENCOUNTER 2019-05-13 01:42 | Emergency (ER) | payer SELFPAY ==
[2019-05-13] MEDS ORDERED: ONDANSETRON 4 MG TAB.RAPDIS PO ONE (02:20)
[2019-05-13] MEDS ORDERED: CLONIDINE HCL 0.1 MG TABLET PO ONE (02:25)
--- NOTE | 2019-05-13 02:25 | ER Document Report ---
ED Substance Abuse / Acc. OD - General TRAVEL OUTSIDE OF THE [place] IN LAST 30 DAYS: No <ROSANAMIKKIKEASCENCION - Last Filed: 05/13/19 06:55> <MELVI HOYOS Sugar - Last Filed: 05/13/19 18:34> - General Stated Complaint: POSSIBLE OVERDOSE Time Seen by Provider: 05/13/19 02:09 Notes: Patient is a 28-year-old female that comes emergency department for chief complaint of accidental overdose on heroin. She states she injected heroin tonight to get a fix, she states she was planning on going to [place] tomorrow and she is actually hoping to be either clean or on Suboxone. She states she was in long term for 20 days and this is the first heroin she has used after she was released on . She denies suicidal ideations or homicidal ideations. She does have a history of depression, anxiety, bipolar. Patient comes by EMS, she was found responding only to painful stimuli with oxygen saturation of 88% with respirations of reportedly 6, she was given 4 mg of intranasal Narcan. Patient denies recreational drugs other than heroin, states she is not currently taking any medications either. (ASCENCION BELLA) - Related Data Allergies/Adverse Reactions: cephalexin monohydrate [From Keflex] Allergy (Verified 11/22/18 16:04) promethazine HCl [From Phenergan] Allergy (Verified 11/22/18 16:04) rash vancomycin Allergy (Verified 11/22/18 16:04) Past Medical History - General Information source: Patient, Emergency Med Personnel - Social History Smoking Status: Never Smoker Drug Abuse: Heroin Lives with: Spouse/Significant other Family History: DM, Hypertension, Malignancy, Other - Past Medical History Cardiac Medical History: Denies: Hx Coronary Artery Disease, Hx Hypertension Pulmonary Medical History: Reports: Hx Asthma - as a child Denies: Hx Tuberculosis Neurological Medical History: Reports: Hx Migraine. Denies: Hx Seizures Endocrine Medical History: Denies: Hx Diabetes Mellitus Type 1, Hx Diabetes Mellitus Type 2 Renal/ Medical History: Denies: Hx Peritoneal Dialysis GI Medical History: Reports: Hx Ulcer - stomach 1 yr ago- reports never treated Skin Medical History: Denies Hx MRSA Psychiatric Medical History: Reports: Hx Anxiety, Hx Bipolar Disorder, Hx Depression, Hx Post Traumatic Stress Disorder Past Surgical History: Reports: Hx Oral Surgery. Denies: Hx Hysterectomy, Hx Pacemaker - Immunizations Immunizations up to date: Yes Hx Diphtheria, Pertussis, Tetanus Vaccination: Yes <ASCENCION BELLA - Last Filed: 05/13/19 06:55> Review of Systems - Review of Systems Constitutional: No symptoms reported EENT: No symptoms reported Cardiovascular: See HPI Respiratory: See HPI Gastrointestinal: No symptoms reported Genitourinary: No symptoms reported Female Genitourinary: No symptoms reported Musculoskeletal: No symptoms reported Skin: No symptoms reported Hematologic/Lymphatic: No symptoms reported Neurological/Psychological: See HPI <ASCENCION BELLA - Last Filed: 05/13/19 06:55> Physical Exam <ASCENCION BELLA - Last Filed: 05/13/19 06:55> - Vital signs Vitals: Temp Pulse Resp BP Pulse Ox 98.8 F 124 H 15 145/91 H 100 05/13/19 01:42 05/13/19 01:42 05/13/19 01:42 05/13/19 01:42 05/13/19 01:42 - Notes Notes: GENERAL: Alert, interacts well. No acute distress. HEAD: Normocephalic, atraumatic. EYES: Pupils dilated, round, and reactive to light. Extraocular movements intact. ENT: Oral mucosa dry, tongue midline. Oropharynx unremarkable. Airway patent. NECK: Full range of motion. Supple. Trachea midline. LUNGS: Clear to auscultation bilaterally, no wheezes, rales, or rhonchi. No respiratory distress. HEART: Tachycardic, normal rhythm, no murmur ABDOMEN: Soft, non-tender. Non-distended. Bowel sounds present in all 4 quadrants. GENITOURINARY: Deferred EXTREMITIES: Moves all 4 extremities spontaneously. No edema, normal radial and dorsalis pedis pulses bilaterally. No cyanosis. BACK: no cervical, thoracic, lumbar midline tenderness. No saddle anesthesia, normal distal neurovascular exam. Moves all extremities in full range of motion. NEUROLOGICAL: Alert and oriented x3. Pressed speech. Cranial nerves II through XII grossly intact. PSYCH: Agitated and has difficulty holding still, restless SKIN: Flushed (ASCENCION BELLA) Course - Laboratory Result Diagrams: 05/13/19 04:04 05/13/19 04:04 <ASCENCION BELLA - Last Filed: 05/13/19 06:55> - Laboratory Result Diagrams: 05/13/19 04:04 05/13/19 04:04 <MELVI HOYOS M - Last Filed: 05/13/19 18:34> - Re-evaluation Re-evalutation: 05/13/19 06:55 On initial evaluation patient is awake, very fidgety, tachycardic, just received 4 mg of Narcan. She states she feels like she is withdrawing. She states she only took heroin as far she knows via injection. Could be from the large dose of Narcan that she is having the symptoms, because she continued to have the symptoms she was given Zofran and clonidine, she did become slightly more calm for a brief period after this, however afterwards she worsened again. I have discussed patient with Dr. Khan. On reevaluation again patient is now more tachycardic, diaphoretic, very awake, very fidgety. I suspect patient has a stimulant that she took as well in addition to the hair when which appears to have worn off. This is been 2 hours, Narcan probably has worn off as well. Patient will be given Ativan. Drug screen shows that patient also has a lot of methamphetamine in addition to opiates and marijuana. Patient does appear to be having symptoms from methamphetamine. She responded slightly to the initial Ativan but had to be given 2 more milligrams for a total of 4 mg. I have discussed patient with Dr. Khan. I did discuss with boyfriend while patient was awake, patient was consenting and discussing with him as well, boyfriend states that there was methamphetamine and heroin given. They have both state that this was taken recreationally" for effects", both state that this is not suicidal and patient states that she was planning on following up with mental health shortly. Reassessment will be made before disposition. CBC shows mild leukocytosis, chemistry shows slightly low glucose at 69, CK is unremarkable, test negative, alcohol negative, no other concerning findings noted. 05/13/19 06:58 Patient has been reevaluated twice more. She is now resting comfortably, sleeping but easily aroused, tachycardia is borderline at 104, blood pressure unremarkable, pulse ox unremarkable, patient having a respiratory rate of 16 while sleeping. Patient will be monitored until the effects of her substance abuse have worn off. (ASCENCION BELLA) 05/13/19 08:09 Assumed care of patient from BRANDY Bella. Patient came in last night with unintentional heroin overdose. She was given 4 mg Narcan by medics and did not do well with this dose. Once the Narcan wore off, it became apparently that patient also had an upper on board. Her boyfriend was here and admits to concurrent meth use. She was given Ativan to help calm her. She was rounded on by BRANDY Cisse several times and she is resting. Plan to continue to monitor and if she does well, discharge home. Patient currently asleep in room -- HR of 93, BP 104/68. Was informed by nurse that while patient slept and was snoring that her O2 sat was 88%. 2 L of O2 was placed on patient. suspect a level of sleep apnea there. Will continue to monitor patient. 05/13/19 12:54 Rounded on patient. She can talk to me but still fairly drowsy from ativan. Will continue to monitor her closely. Rounded on patient. She has done well today in the Er. Has been eating lunch and drinking liquids. She has been able to ambulate to the bathroom. She was talking about her legs hurting, so she was given toradol. She states that this has helped. She reiterates that she has no SI, HI, or hallucinations. her vital signs have stabilized over the course of the day. Will discharge home and give PCP outpatient follow up. (MELVI HOYOS) - Vital Signs Vital signs: Temp Pulse Resp BP Pulse Ox 98.8 F 124 H 23 H 98/51 L 97 05/13/19 01:42 05/13/19 01:42 05/13/19 16:30 05/13/19 16:30 05/13/19 14:30 05/13/19 18:34 Selected Entries 05/13/19 05/13/19 05/13/19 09:01 10:01 17:01 Heart Rate ( 80 79 Monitors) Respiratory 20 21 H Rate Blood Pressure 104/68 113/67 98/62 L Blood Pressure 80 82 74 Mean O2 Sat by Pulse 100 100 Oximetry 05/13/19 05/13/19 17:29 17:30 Heart Rate ( 96 Monitors) Respiratory 21 H Rate Blood Pressure Blood Pressure Mean O2 Sat by Pulse Oximetry (MELVI HOYOS) - Laboratory Laboratory results interpreted by me: 05/13/19 05/13/19 05/13/19 02:07 04:04 04:04 WBC 12.0 H RDW 14.7 H Plt Count 139 L Lymph % (Auto) 10.9 L Absolute Neuts (auto) 9.3 H Glucose 69 L POC Glucose AST 137 H Urine Protein 100 H Urine Ketones TRACE H Urine Urobilinogen 2.0 H Ur Leukocyte Esterase TRACE H Salicylates < 1.0 L Acetaminophen < 10 L 05/13/19 13:12 WBC RDW Plt Count Lymph % (Auto) Absolute Neuts (auto) Glucose POC Glucose 60 L AST Urine Protein Urine Ketones Urine Urobilinogen Ur Leukocyte Esterase Salicylates Acetaminophen - EKG Interpretation by Me Additional EKG results interpreted by me: EKG shows sinus tachycardia at a rate of 111, QTC 446, normal axis, no T wave inversions or ST segment changes in consecutive leads. (ASCENCION BELLA) Discharge <ASCENCION BELLA - Last Filed: 05/13/19 06:55> <MELVI HOYOS - Last Filed: 05/13/19 18:34> - Discharge Clinical Impression: Substance abuse, Heroin use, Methamphetamine use Condition: Stable Disposition: HOME, SELF-CARE Additional Instructions: PUSH FLUIDS. REST AT HOME. FOLLOW UP WITH CLINIC BELOW. RETURN IF YOU HAVE ANY WORSENING SYMPTOMS. Referrals: [facility] [Provider Group] - Follow up in 3-5 days
[2019-05-13 02:42] LABS: APPEARANCE,URINE SLIGHTLY-CLOUDY; BILIRUBIN,URINE NEGATIVE (NEGATIVE); COLOR,URINE YELLOW; GLUCOSE, URINE NEGATIVE (NEGATIVE); KETONES,URINE TRACE mg/dL (NEGATIVE); LEUKOCYTE ESTERASE,URINE TRACE (NEGATIVE); NITRITE,URINE NEGATIVE (NEGATIVE); PROTEIN,URINE 100 mg/dL (NEGATIVE); URINE SPECIFIC GRAVITY 1.023
[2019-05-13 03:39] LABS: URINE BARBITURATES SCREEN NEGATIVE; URINE BENZODIAZEPINES SCREEN NEGATIVE; URINE COCAINE SCREEN NEGATIVE; URINE MARIJUANA (THC) SCREEN UNCONFIRMED POSITIVE; URINE METHADONE SCREEN NEGATIVE; URINE PHENCYCLIDINE SCREEN NEGATIVE
[2019-05-13] MEDS ORDERED: LORAZEPAM INJ 2 MG/1 ML VIAL IM ONE (04:24)
[2019-05-13] MEDS ORDERED: LORAZEPAM INJ 2 MG/1 ML VIAL ONE (04:26)
[2019-05-13 04:32] LABS: ABSOLUTE LYMPHOCYTES (AUTO) 1.3 10^3/uL (0.5-4.7); ABSOLUTE MONOCYTES (AUTO) 1.3 10^3/uL (0.1-1.4); ABSOLUTE NEUT (AUTO) 9.3 10^3/uL (1.7-8.2); BASOPHILS % (AUTO) 0.3 % (0-2); EOSINOPHILS % (AUTO) 0.2 % (0-6); HEMATOCRIT 41.2 % (36.0-47.0); HEMOGLOBIN 13.3 g/dL (12.0-15.5); LYMPHOCYTES % (AUTO) 10.9 % (13-45); MEAN CORPUSCULAR HEMOGLOBIN 30.3 pg (27.0-33.4); MEAN CORPUSCULAR HGB CONC 32.3 g/dL (32.0-36.0); MEAN CORPUSCULAR VOLUME 94 fl (80-97); MONOCYTES % (AUTO) 10.7 % (3-13); PLATELET COUNT 139 10^3/uL (150-450); RED CELL DISTRIBUTION WIDTH 14.7 % (11.5-14.0); SEGMENTED NEUTROPHILS % (AUTO) 77.9 % (42-78); TOTAL CELLS COUNTED % (AUTO) 100 %
[2019-05-13] MEDS ORDERED: LORAZEPAM INJ 2 MG/1 ML VIAL IV ONE (04:45)
[2019-05-13 04:55] LABS: ACETAMINOPHEN < 10 ug/mL (10-30); ALBUMIN 4.1 g/dL (3.5-5.0); ALCOHOL < 10 mg/dL (NONE DETECTED); ALKALINE PHOSPHATASE 72 U/L (38-126); ANION GAP 11 (5-19); ASPARTATE AMINO TRANSFERASE 137 U/L (14-36); BILIRUBIN,DIRECT 0.3 mg/dL (0.0-0.4); BILIRUBIN,TOTAL 0.4 mg/dL (0.2-1.3); BLOOD UREA NITROGEN 17 mg/dL (7-20); CALCIUM 9.1 mg/dL (8.4-10.2); CARBON DIOXIDE 25 mmol/L (22-30); CHLORIDE 107 mmol/L (98-107); CREATINE KINASE 132 U/L (30-135); POTASSIUM 4.7 mmol/L (3.6-5.0); SALICYLATE < 1.0 mg/dL (2.0-20.0); TOTAL PROTEIN 7.9 g/dL (6.3-8.2)
[2019-05-13 04:56] LABS: GLUCOSE 69 mg/dL (75-110)
--- NOTE | 2019-05-13 08:32 | EKG REPORT ---
SEVERITY:- OTHERWISE NORMAL ECG - SINUS TACHYCARDIA : Confirmed by: Miles Ayala MD 13-May-2019 08:31:44
[2019-05-13] MEDS ORDERED: KETOROLAC TROMETHAMINE INJ/PF 30 MG/1 ML SDV IV ONE (17:23)
[2019-05-13] MEDS ORDERED: KETOROLAC TROMETHAMINE 60 MG/2 ML SDV IM ONE (17:35)
[2019-05-13 19:36] VITALS: BP 103/75
== END 2019-05-13 19:41 | disposition home or self-care (01) ==
LOC: ER 01:42
DX: T40.1X1A Poisoning by heroin, accidental (unintentional), initial encounter (principal); R00.0 Tachycardia, unspecified; R23.2 Flushing; R45.1 Restlessness and agitation; R61 Generalized hyperhidrosis; D72.829 Elevated white blood cell count, unspecified; R06.83 Snoring; M79.606 Pain in leg, unspecified; Z88.1 Allergy status to other antibiotic agents; Z88.8 Allergy status to other drugs, medicaments and biological substances
CPT/HCPCS: 93005; 36415; 82962; 80307 ×4; 82550; 85025; 81025; 80053; 81001; 93010; J1885; S0119; J2060

== ENCOUNTER 2019-05-18 18:17 | Emergency (ER) | payer SELFPAY ==
[2019-05-18 18:52] VITALS: BP 118/65
--- NOTE | 2019-05-18 19:15 | ER Document Report ---
ED Medical Screen (RME) - General Chief Complaint: Rash Stated Complaint: CONJESTION/RIGHT HAND INJURY/RASH Time Seen by Provider: 05/18/19 19:11 Mode of Arrival: Ambulatory Information source: Patient Notes: 28-year-old female presents to ED for complaint of infection to the right hand. She states she has not shot up any medications since Tuesday when she overdosed. She states she overdosed on heroin on Tuesday a week ago. Patient does have a red swollen warm hand. She has a rash to the abdomen and legs. Patient is alert and oriented she is fidgety. She states she does not use any drugs since last week. She states she smokes half pack a day she denies use of any alcohol. I have greeted and performed a rapid initial assessment of this patient. A comprehensive ED assessment and evaluation of the patient, analysis of test results and completion of medical decision making process will be conducted by an additional ED providers. TRAVEL OUTSIDE OF THE [place] IN LAST 30 DAYS: No - Related Data Allergies/Adverse Reactions: cephalexin monohydrate [From Keflex] Allergy (Verified 11/22/18 16:04) promethazine HCl [From Phenergan] Allergy (Verified 11/22/18 16:04) rash vancomycin Allergy (Verified 11/22/18 16:04) Past Medical History - Past Medical History Cardiac Medical History: Denies: Hx Coronary Artery Disease, Hx Hypertension Pulmonary Medical History: Reports: Hx Asthma - as a child Denies: Hx Tuberculosis Neurological Medical History: Reports: Hx Migraine. Denies: Hx Seizures Endocrine Medical History: Denies: Hx Diabetes Mellitus Type 1, Hx Diabetes Mellitus Type 2 Renal/ Medical History: Denies: Hx Peritoneal Dialysis GI Medical History: Reports: Hx Ulcer - stomach 1 yr ago- reports never treated Skin Medical History: Denies Hx MRSA Psychiatric Medical History: Reports: Hx Anxiety, Hx Bipolar Disorder, Hx Depression, Hx Post Traumatic Stress Disorder Past Surgical History: Reports: Hx Oral Surgery. Denies: Hx Hysterectomy, Hx Pacemaker - Immunizations Immunizations up to date: Yes Hx Diphtheria, Pertussis, Tetanus Vaccination: Yes Physical Exam - Vital signs Vitals: Temp Pulse Resp BP Pulse Ox 99.2 F 118 H 22 H 118/65 98 05/18/19 18:49 05/18/19 18:49 05/18/19 18:49 05/18/19 18:49 05/18/19 18:49 Course - Vital Signs Vital signs: Temp Pulse Resp BP Pulse Ox 99.2 F 118 H 22 H 118/65 98 05/18/19 18:49 05/18/19 18:49 05/18/19 18:49 05/18/19 18:49 05/18/19 18:49
== END 2019-05-18 19:50 | disposition left against medical advice (07) ==
LOC: ER 18:17
DX: B99.9 Unspecified infectious disease (principal); R21 Rash and other nonspecific skin eruption; F17.200 Nicotine dependence, unspecified, uncomplicated; Z88.1 Allergy status to other antibiotic agents; Z88.8 Allergy status to other drugs, medicaments and biological substances; Z53.20 Procedure and treatment not carried out because of patient's decision for unspecified reasons
CPT/HCPCS: 99281

== ENCOUNTER 2019-10-25 04:58 | Emergency (ER) | payer SELFPAY ==
[2019-10-25 05:36] LABS: APPEARANCE,URINE CLEAR; BILIRUBIN,URINE NEGATIVE (NEGATIVE); COLOR,URINE YELLOW; GLUCOSE, URINE NEGATIVE (NEGATIVE); KETONES,URINE NEGATIVE (NEGATIVE); LEUKOCYTE ESTERASE,URINE SMALL (NEGATIVE); NITRITE,URINE NEGATIVE (NEGATIVE); PROTEIN,URINE NEGATIVE (NEGATIVE); URINE SPECIFIC GRAVITY 1.023; UROBILINOGEN,URINE NEGATIVE mg/dL (<2.0)
[2019-10-25] MEDS ORDERED: FLUCONAZOLE 100 MG TABLET PO ONE (06:03)
[2019-10-25] MEDS ORDERED: DOXYCYCLINE HYCLATE 100 MG TABLET PO ONE (06:03)
--- NOTE | 2019-10-25 06:14 | ER Document Report ---
ED General - General Chief Complaint: Urinary Problem Stated Complaint: URINARY PROBLEMS Time Seen by Provider: 10/25/19 05:43 Notes: 29-year-old female who presents emergency department complaining of hematuria and dysuria for the past week. Patient states that she thinks she has a urinary tract infection. Today she was having some sweats and chills that made her think she had a fever as well as some muscle aches. Patient states that she has been injecting heroin to help with her pain. Patient also states that today she used a mirror to look at her genitalia and noticed that her "man in the boat was swollen" and she noticed that she has lumps in her groin as well. Patient also notes that she is having some itching externally and that she is prone to yeast infections after taking antibiotics. TRAVEL OUTSIDE OF THE [place] IN LAST 30 DAYS: No - Related Data Allergies/Adverse Reactions: cephalexin monohydrate [From Keflex] Allergy (Verified 11/22/18 16:04) promethazine HCl [From Phenergan] Allergy (Verified 11/22/18 16:04) rash vancomycin Allergy (Verified 11/22/18 16:04) Past Medical History - General Information source: Patient - Social History Smoking Status: Current Every Day Smoker Frequency of alcohol use: None Drug Abuse: Cocaine, Heroin, Methamphetamine, Prescription drugs Family History: DM, Hypertension, Malignancy, Other Patient has suicidal ideation: No Patient has homicidal ideation: No - Past Medical History Cardiac Medical History: Denies: Hx Coronary Artery Disease, Hx Hypertension Pulmonary Medical History: Reports: Hx Asthma - as a child Denies: Hx Tuberculosis Neurological Medical History: Reports: Hx Migraine. Denies: Hx Seizures Endocrine Medical History: Denies: Hx Diabetes Mellitus Type 1, Hx Diabetes Mellitus Type 2 Renal/ Medical History: Denies: Hx Peritoneal Dialysis GI Medical History: Reports: Hx Ulcer - stomach 1 yr ago- reports never treated Skin Medical History: Denies Hx MRSA Psychiatric Medical History: Reports: Hx Anxiety, Hx Bipolar Disorder, Hx Depression, Hx Post Traumatic Stress Disorder Past Surgical History: Reports: Hx Oral Surgery. Denies: Hx Hysterectomy, Hx Pacemaker - Immunizations Immunizations up to date: Yes Hx Diphtheria, Pertussis, Tetanus Vaccination: Yes Review of Systems - Review of Systems Constitutional: See HPI, Chills, Diaphoresis, Malaise. denies: Weakness EENT: No symptoms reported Cardiovascular: No symptoms reported Respiratory: No symptoms reported Gastrointestinal: No symptoms reported Genitourinary: See HPI, Burning, Dysuria, Frequency. denies: Discharge, Flank pain Female Genitourinary: See HPI Musculoskeletal: denies: Back pain -: Yes All other systems reviewed and negative Physical Exam - Vital signs Vitals: Temp Pulse Resp BP Pulse Ox 98.5 F 123 H 24 H 103/56 L 99 10/25/19 05:04 10/25/19 05:04 10/25/19 05:04 10/25/19 05:04 10/25/19 05:04 Interpretation: Tachycardic - Notes Notes: GENERAL: Alert, interacts well. No acute distress. HEAD: Normocephalic, atraumatic EYES: Pupils equal, round and reactive to light, extraocular movements intact. ENT: Oral mucosa moist, tongue midline. NECK: Full range of motion, supple, trachea midline. ABDOMEN: nondistended. : Erythema of the labia minora and clitoris and urethra. No significant swelling. There is some inguinal lymphadenopathy. Shaved with some ingrown hairs. EXTREMITIES: Moves all 4 extremities spontaneously, no edema. No cyanosis. NEUROLOGICAL: Alert and oriented x3, normal speech. PSYCH: Mildly anxious. SKIN: Warm, Dry. Course - Re-evaluation Re-evalutation: 10/25/19 06:15 Urinalysis shows moderate blood, small leukocyte esterase, this was sent for culture, test is negative. Patient will be treated with doxycycline for urinary tract infection as well as Diflucan 2 treat yeast infection. - Vital Signs Vital signs: Temp Pulse Resp BP Pulse Ox 98.5 F 123 H 24 H 103/56 L 99 10/25/19 05:04 10/25/19 05:04 10/25/19 05:04 10/25/19 05:04 10/25/19 05:04 - Laboratory Laboratory results interpreted by me: 10/25/19 05:15 Urine Blood MODERATE H Ur Leukocyte Esterase SMALL H Discharge - Discharge Clinical Impression: Heroin use UTI (urinary tract infection) Qualifiers: Urinary tract infection type: acute cystitis Hematuria presence: with hematuria Qualified Code(s): N30.01 - Acute cystitis with hematuria Condition: Stable Disposition: HOME, SELF-CARE Instructions: Urinary Tract Infection ([facility]) Prescriptions: Fluconazole [Diflucan 100 mg Tablet] 150 mg PO ONCE #1 tablet Doxycycline Hyclate [Vibramycin 100 mg Tablet] 100 mg PO BID #14 tablet
[2019-10-25 06:31] VITALS: BP 103/71
== END 2019-10-25 06:45 | disposition home or self-care (01) ==
LOC: ER 04:58
DX: N30.01 Acute cystitis with hematuria (principal); B37.9 Candidiasis, unspecified; L73.1 Pseudofolliculitis barbae; F11.10 Opioid abuse, uncomplicated; F14.10 Cocaine abuse, uncomplicated; F15.10 Other stimulant abuse, uncomplicated; R68.83 Chills (without fever); R61 Generalized hyperhidrosis; R53.81 Other malaise; F17.200 Nicotine dependence, unspecified, uncomplicated; Z88.1 Allergy status to other antibiotic agents; Z88.8 Allergy status to other drugs, medicaments and biological substances
CPT/HCPCS: 81001; 81025; 87086; 87088; 87186; 99283

== ENCOUNTER 2019-12-08 00:11 | Emergency (ER) | payer SELFPAY ==
[2019-12-08] MEDS ORDERED: NORMAL SALINE 1000 ML 2,700 ML IV PRN (01:01)
[2019-12-08] MEDS ORDERED: PIPERACILLIN/TAZOBACTAM 3.375 GM VIAL IV ONE (01:07)
[2019-12-08] MEDS ORDERED: ACETAMINOPHEN 325 MG TABLET PO ONE (01:09)
[2019-12-08 01:11] LABS: AMORPHOUS SEDIMENT,URINE TRACE /HPF; APPEARANCE,URINE SLIGHTLY-CLOUDY; BILIRUBIN,URINE NEGATIVE (NEGATIVE); COLOR,URINE YELLOW; GLUCOSE, URINE NEGATIVE (NEGATIVE); KETONES,URINE NEGATIVE (NEGATIVE); PROTEIN,URINE NEGATIVE (NEGATIVE); UROBILINOGEN,URINE NEGATIVE mg/dL (<2.0)
--- NOTE | 2019-12-08 01:16 | ER Document Report ---
ED General - General Mode of Arrival: Medic Information source: Patient TRAVEL OUTSIDE OF THE [place] IN LAST 30 DAYS: No <HATTIE MOREIRA - Last Filed: 12/08/19 03:52> <MARTIN LEPE - Last Filed: 12/08/19 16:32> - General Chief Complaint: Drug Abuse Stated Complaint: SUBSTANCE ABUSE Time Seen by Provider: 12/08/19 00:51 Primary Care Provider: IRVING SORTO DO [NO LOCAL MD] - Follow up as needed Notes: This 29-year-old female presents to the emergency department with a history of at a green party with her friends states that she had done some drugs, she unable to give us a history of what she been using. She is very fidgety, tachycardic, is running a temperature of 101.0 and heart rate of 127. Previous hospitalization revealed large amount of amphetamine. Apparently, told the EMS that she had used heroin and methamphetamine. (HATTIE MOREIRA) - Related Data Allergies/Adverse Reactions: cephalexin monohydrate [From Keflex] Allergy (Verified 12/08/19 13:20) promethazine HCl [From Phenergan] Allergy (Verified 12/08/19 13:20) rash vancomycin Allergy (Verified 12/08/19 13:20) Past Medical History - Social History Smoking Status: Current Every Day Smoker Frequency of alcohol use: Occasional Drug Abuse: Heroin Family History: DM, Hypertension, Malignancy, Other Patient has homicidal ideation: No - Past Medical History Cardiac Medical History: Denies: Hx Coronary Artery Disease, Hx Hypertension Pulmonary Medical History: Reports: Hx Asthma - as a child Denies: Hx Tuberculosis Neurological Medical History: Reports: Hx Migraine. Denies: Hx Seizures Endocrine Medical History: Denies: Hx Diabetes Mellitus Type 1, Hx Diabetes Kianna itus Type 2 Renal/ Medical History: Denies: Hx Peritoneal Dialysis GI Medical History: Reports: Hx Ulcer - stomach 1 yr ago- reports never treated Skin Medical History: Denies Hx MRSA Psychiatric Medical History: Reports: Hx Anxiety, Hx Bipolar Disorder, Hx Depression, Hx Post Traumatic Stress Disorder Past Surgical History: Reports: Hx Oral Surgery. Denies: Hx Hysterectomy, Hx Pacemaker - Immunizations Immunizations up to date: Yes Hx Diphtheria, Pertussis, Tetanus Vaccination: Yes <HATTIE MOREIRA - Last Filed: 12/08/19 03:52> Review of Systems <HATTIE MOREIRA - Last Filed: 12/08/19 03:52> - Review of Systems Notes: Constitutional: Uncooperative and fidgety HENT: Negative for sore throat. Eyes: Negative for visual changes. Cardiovascular: Negative for chest pain. Respiratory: Negative for shortness of breath. Gastrointestinal: Negative for abdominal pain, vomiting or diarrhea. Genitourinary: Negative for dysuria. Musculoskeletal: Negative for back pain. Skin: + Multiple needle andrew on the neck bilaterally Neurological: Negative for headaches, weakness or numbness. 10 point ROS negative except as marked above and in HPI. (HARISHHATTIE) Physical Exam <HATTIE MOREIRA - Last Filed: 12/08/19 03:52> - Vital signs Vitals: Resp BP Pulse Ox 23 H 125/99 H 100 12/08/19 00:26 12/08/19 00:26 12/08/19 00:26 - Notes Notes: PHYSICAL EXAMINATION: Physical Exam: General: Shaky physical the uncooperative 29-year-old female HEENT: NC/AT, pupils equal round and reactive to light, MM moist,nares clear, oropharynx clear, airway patent Neck: supple, no adenopathy, no masses. Good range of motion Lungs: clear, no wheezing, no rales no rhonchi CVS: Tachycardic rate and rhythm no murmur gallop or rub Abdomen: Soft, active, nontender, no masses, no hepatosplenomegaly Ext: No edema, clubbing or cyanosis. Neuro: Alert and responsive, moving all 4 extremities on command, cranial nerves intact, no focal findings Skin: Multiple needle andrew on her anterior neck bilaterally, old track andrew bilateral antecubital regions PSYCH: Normal mood, normal affect. (HARISHHATTIE) Course - Laboratory Result Diagrams: 12/08/19 02:00 12/08/19 02:00 <HATTIE MOREIRA - Last Filed: 12/08/19 03:52> - Laboratory Result Diagrams: 12/08/19 02:00 12/08/19 02:00 - Diagnostic Test Radiology reviewed: Image reviewed, Reports reviewed - EKG Interpretation by Nj EKG shows normal: Sinus rhythm, [place], Intervals, QRS Complexes Rate: Tachycardia Rhythm: NSR <MARTIN LEPE - Last Filed: 12/08/19 16:32> - Re-evaluation Re-evalutation: 12/08/19 16:26 The patient was brought to the ER last night altered in the setting of using drugs (shooting up opiates and amphetamines) but she was also febrile. I was the day shift MD caring for the patient today. The patient was found to have a UTI (seemed mild by UA) but her urine culture came back positive during her ER stay. Patient had been given a dose of Zosyn last night by another provider. Will treat with a 7 day course of Cipro (first dose given in the ER) since patient apparently has several antibiotic allergies. Patient is not suicidal or homicidal. Patient was using drugs to get high. Patient does not want to get acute mental health care/services at this time. (MARTIN LEPE) - Vital Signs Vital signs: Temp Pulse Resp BP Pulse Ox 98.3 F 18 107/61 100 12/08/19 13:01 12/08/19 13:09 12/08/19 13:09 12/08/19 13:09 - Laboratory Laboratory results interpreted by me: 12/08/19 12/08/19 12/08/19 00:16 02:00 02:00 WBC 14.8 H Lymph % (Auto) 7.8 L Absolute Neuts (auto) 12.4 H Seg Neutrophils % 84.2 H Sodium 135.7 L Glucose 119 H AST 117 H ALT 117 H Leukocyte Esterase Rfl SMALL H - EKG Interpretation by Me Additional EKG results interpreted by me: 12/08/19 16:20 T wave inversion in III (MARTIN LEPE) Discharge <HATTIE MOREIRA - Last Filed: 12/08/19 03:52> <MARTIN LEPE - Last Filed: 12/08/19 16:32> - Discharge Clinical Impression: Drug abuse, Opiate abuse, episodic, Methamphetamine abuse UTI (urinary tract infection) Qualifiers: Urinary tract infection type: site unspecified Hematuria presence: without hematuria Qualified Code(s): N39.0 - Urinary tract infection, site not specified Fever Qualifiers: Fever type: drug-induced Qualified Code(s): R50.2 - Drug induced fever Condition: Stable Disposition: HOME, SELF-CARE Instructions: Instructions for Home Care Following a Drug Overdose ([facility]), Urinary Tract Infection ([facility]) Additional Instructions: Take Ciprofloxacin as prescribed since you have a UTI and you had a fever last night. Drink plenty of fluids in the days to come. Follow up with a primary care doctor and with an outpatient mental health provider. Strongly consider getting help with your drug problem. Return to an ER for thoughts of wanting to harm yourself or others or for sustained fevers, chills, sweats. Prescriptions: Ciprofloxacin HCl [Cipro 500 mg Tablet] 500 mg PO BID 7 Days #14 tablet Referrals: IRVING SORTO DO [NO LOCAL MD] - Follow up as needed
--- NOTE | 2019-12-08 01:58 | RADIOLOGY REPORT (SQ) ---
EXAM DESCRIPTION: XR CHEST 1 VIEW COMPLETED DATE/TME: 12/08/2019 01:02 CLINICAL HISTORY: 29 years Female, shortness of breath COMPARISON: 03/13/18 NUMBER OF VIEWS/TECHNIQUE: 1/AP FINDINGS: Adequate lung volume, clear parenchyma, normal cardiac silhouette, and intact bony thorax. IMPRESSION: No acute cardiopulmonary findings.
[2019-12-08 02:09] LABS: URINE BARBITURATES SCREEN NEGATIVE; URINE BENZODIAZEPINES SCREEN NEGATIVE; URINE COCAINE SCREEN NEGATIVE; URINE MARIJUANA (THC) SCREEN NEGATIVE; URINE METHADONE SCREEN NEGATIVE; URINE PHENCYCLIDINE SCREEN NEGATIVE
[2019-12-08 02:14] LABS: URINE AMPHETAMINES SCREEN UNCONFIRMED POSITIVE
[2019-12-08 02:30] LABS: ABSOLUTE BASOPHILS # (AUTO) 0.1 10^3/uL (0.0-0.2); ABSOLUTE LYMPHOCYTES (AUTO) 1.1 10^3/uL (0.5-4.7); ABSOLUTE MONOCYTES (AUTO) 1.1 10^3/uL (0.1-1.4); ABSOLUTE NEUT (AUTO) 12.4 10^3/uL (1.7-8.2); BASOPHILS % (AUTO) 0.5 % (0-2); EOSINOPHILS % (AUTO) 0.1 % (0-6); HEMATOCRIT 38.6 % (36.0-47.0); HEMOGLOBIN 13.6 g/dL (12.0-15.5); LYMPHOCYTES % (AUTO) 7.8 % (13-45); MEAN CORPUSCULAR HEMOGLOBIN 31.7 pg (27.0-33.4); MEAN CORPUSCULAR HGB CONC 35.1 g/dL (32.0-36.0); MEAN CORPUSCULAR VOLUME 90 fl (80-97); MONOCYTES % (AUTO) 7.4 % (3-13); PLATELET COUNT 237 10^3/uL (150-450); RED BLOOD COUNT 4.28 10^6/uL (3.72-5.28); RED CELL DISTRIBUTION WIDTH 12.4 % (11.5-14.0); SEGMENTED NEUTROPHILS % (AUTO) 84.2 % (42-78); TOTAL CELLS COUNTED % (AUTO) 100 %; WHITE BLOOD COUNT 14.8 10^3/uL (4.0-10.5)
[2019-12-08 02:36] LABS: ALBUMIN 3.8 g/dL (3.5-5.0); ALKALINE PHOSPHATASE 74 U/L (38-126); ANION GAP 10 (5-19); ASPARTATE AMINO TRANSFERASE 117 U/L (14-36); BILIRUBIN,DIRECT 0.1 mg/dL (0.0-0.4); BLOOD UREA NITROGEN 12 mg/dL (7-20); CARBON DIOXIDE 23 mmol/L (22-30); CHLORIDE 103 mmol/L (98-107); GLUCOSE 119 mg/dL (75-110); POTASSIUM 4.1 mmol/L (3.6-5.0); TOTAL PROTEIN 7.9 g/dL (6.3-8.2)
[2019-12-08 03:14] LABS: VENOUS BLOOD BASE EXCESS 0.8 mmol/L; VENOUS BLOOD HCO3 25.7 mmol/L (20-32); VENOUS BLOOD PCO2 41.9 mmHg (35-63); VENOUS BLOOD PH 7.41 (7.30-7.42)
--- NOTE | 2019-12-08 08:42 | EKG REPORT ---
SEVERITY:- BORDERLINE ECG - SINUS TACHYCARDIA BORDERLINE T ABNORMALITIES, INFERIOR LEADS : Confirmed by: Miles Ayala MD 08-Dec-2019 08:41:19
[2019-12-08] MEDS ORDERED: CIPROFLOXACIN HCL 500 MG TABLET PO ONE (16:23)
[2019-12-08 16:35] VITALS: BP 101/62
== END 2019-12-08 16:50 | disposition home or self-care (01) ==
LOC: ER 00:11
DX: F15.10 Other stimulant abuse, uncomplicated (principal); F11.10 Opioid abuse, uncomplicated; R50.2 Drug induced fever; N39.0 Urinary tract infection, site not specified; R00.0 Tachycardia, unspecified; F17.200 Nicotine dependence, unspecified, uncomplicated; Z88.1 Allergy status to other antibiotic agents; Z88.8 Allergy status to other drugs, medicaments and biological substances
CPT/HCPCS: 93005; 99284; 96361; 96365; 36415; 87040; 87086; 83605; 85025; 81025; 87088; 80053; 81001; 87186; 80307; 82803; 71045; 93010; J7030; J2543

== ENCOUNTER 2020-03-30 10:44 | Inpatient (IN) | payer SELFPAY ==
[2020-03-30] MEDS ORDERED: DOPAMINE HCL/DEXTROSE 5%-WATER 800 MG/250 ML RTUINJ IV PRN (10:49)
[2020-03-30] MEDS ORDERED: RINGERS SOLUTION,LACTATED 1,000 ML IV PRN ×2 (10:58→10:59)
[2020-03-30] MEDS ORDERED: ACETAMINOPHEN 650 MG SUPP.RECT PR ONE (11:00)
[2020-03-30] MEDS ORDERED: MEROPENEM 1 GM VIAL IV ONE (11:01)
[2020-03-30 11:19] LABS: HEMATOCRIT 38.7 % (36.0-47.0); HEMOGLOBIN 13.4 g/dL (12.0-15.5); MEAN CORPUSCULAR HEMOGLOBIN 30.8 pg (27.0-33.4); MEAN CORPUSCULAR HGB CONC 34.6 g/dL (32.0-36.0); MEAN CORPUSCULAR VOLUME 89 fl (80-97); PLATELET COUNT 208 10^3/uL (150-450); RED BLOOD COUNT 4.34 10^6/uL (3.72-5.28); RED CELL DISTRIBUTION WIDTH 14.1 % (11.5-14.0); WHITE BLOOD COUNT 17.1 10^3/uL (4.0-10.5)
[2020-03-30 11:26] LABS: INTERNATIONAL RATION (INR) 1.21; PROTHROMBIN TIME 15.5 SEC (11.4-15.4)
[2020-03-30 11:37] LABS: ALBUMIN 4.2 g/dL (3.5-5.0); ALKALINE PHOSPHATASE 93 U/L (38-126); ANION GAP 11 (5-19); ASPARTATE AMINO TRANSFERASE 364 U/L (14-36); BILIRUBIN,DIRECT 0.9 mg/dL (0.0-0.4); BLOOD UREA NITROGEN 22 mg/dL (7-20); CALCIUM 9.3 mg/dL (8.4-10.2); CARBON DIOXIDE 21 mmol/L (22-30); CHLORIDE 114 mmol/L (98-107); CREATINE KINASE 1318 U/L (30-135); GLUCOSE 84 mg/dL (75-110); POTASSIUM 3.3 mmol/L (3.6-5.0); TOTAL PROTEIN 8.1 g/dL (6.3-8.2)
[2020-03-30 11:38] LABS: ABSOLUTE MONOCYTES # (MANUAL) 0.2 10^3/uL (0.1-1.4); ANISOCYTOSIS SLIGHT; BASOPHILS % (MANUAL) 0 % (0-2); EOSINOPHILS % (MANUAL) 0 % (0-6); LYMPHOCYTES % (MANUAL) 6 % (13-45); MONOCYTES % (MANUAL) 1 % (3-13); SEGMENTED NEUTROPHILS % (MAN) 93 % (42-78); TOTAL CELLS COUNTED 100
[2020-03-30 11:39] LABS: PLATELET COMMENT ADEQUATE
[2020-03-30] MEDS ORDERED: LIDOCAINE 1%/EPINEPHRINE INJ 20 ML VIAL INJ ONE (11:48)
[2020-03-30] MEDS ORDERED: LIDOCAINE 1% INJ-PF (10 MG/ML) 30 ML SDV ONE (11:49)
[2020-03-30] MEDS ORDERED: KETAMINE HCL INJ 500 MG/10 ML VIAL ONE (12:00)
--- NOTE | 2020-03-30 12:00 | RADIOLOGY REPORT (SQ) ---
EXAM DESCRIPTION: CHEST SINGLE VIEW IMAGES COMPLETED DATE/TIME: 03/30/2020 11:42 am REASON FOR STUDY: Fever; AMS COMPARISON: Chest radiograph 12/08/2019 NUMBER OF VIEWS: One view. TECHNIQUE: Single frontal radiographic view of the chest acquired. LIMITATIONS: None. FINDINGS: LUNGS AND PLEURA: No opacities, masses or pneumothorax. No pleural effusion. MEDIASTINUM AND HILAR STRUCTURES: No masses. Contour normal. HEART AND VASCULAR STRUCTURES: Heart normal in size. Normal vasculature. BONES: No acute findings. HARDWARE: None in the chest. OTHER: No other significant finding. IMPRESSION: NO SIGNIFICANT RADIOGRAPHIC FINDING IN THE CHEST. TECHNICAL DOCUMENTATION: JOB ID: [id number] 2010 [employer]- All Rights Reserved Reading location - IP/workstation name: [email or web address]
--- NOTE | 2020-03-30 12:11 | ER Document Report ---
ED General - General Chief Complaint: Altered Mental Status Stated Complaint: ALTERED MENTAL STATUS Time Seen by Provider: 03/30/20 10:49 Cannot obtain history due to: Unstable vital signs Notes: HPI: 29-year-old female that presents today with EMS secondary to altered mental status. Supposedly her roommate called while the patient was in the grass altered and combative. EMS states that they gave ketamine 300 mg IM given the risk to themselves and to the patient. Patient has a history of drug abuse in the past. Patient was found to have a fever of 101 axillary. Patient on previous records is allergic to Keflex and vancomycin. Unknown allergic reaction ROS: See HPI Unable to obtain secondary to patient's condition Reviewed vital signs and nursing note as charted by RN. PHYSICAL EXAM: CONSTITUTIONAL: Patient is currently somnolent with spontaneous respirations HEAD: Normocephalic; atraumatic EYES: PERRL; no nystagmus noted, sclerae non-icteric ENT: Normal nose; no rhinorrhea; moist mucous membranes; pharynx without lesions noted NECK: Supple without meningismus; non-tender; no cervical lymphadenopathy, no masses CARD: Regular rate and rhythm; no murmurs; symmetric distal pulses RESP: Normal chest excursion without splinting or tachypnea; breath sounds clear and equal bilaterally ABD/GI: Normal bowel sounds; non-distended; soft, no palpable organomegaly or masses BACK: The back has multiple abrasions and scratches and bruising present EXT: Normal ROM in all joints; non-tender to palpation; no edema SKIN: Patient has multiple bruises and abrasions to all 4 extremities. No palpable fluctuance or induration NEURO: Intermittent spontaneous movement of the extremities TRAVEL OUTSIDE OF THE [place] IN LAST 30 DAYS: No - Related Data Allergies/Adverse Reactions: cephalexin monohydrate [From Keflex] Allergy (Verified 12/08/19 13:20) promethazine HCl [From Phenergan] Allergy (Verified 12/08/19 13:20) rash vancomycin Allergy (Verified 12/08/19 13:20) Past Medical History - Social History Smoking Status: Unknown if Ever Smoked Family History: DM, Hypertension, Malignancy, Other - Past Medical History Cardiac Medical History: Denies: Hx Coronary Artery Disease, Hx Hypertension Pulmonary Medical History: Reports: Hx Asthma - as a child Denies: Hx Tuberculosis Neurological Medical History: Reports: Hx Migraine. Denies: Hx Seizures Endocrine Medical History: Denies: Hx Diabetes Mellitus Type 1, Hx Diabetes Mellitus Type 2 Renal/ Medical History: Denies: Hx Peritoneal Dialysis GI Medical History: Reports: Hx Ulcer - stomach 1 yr ago- reports never treated Skin Medical History: Denies Hx MRSA Psychiatric Medical History: Reports: Hx Anxiety, Hx Bipolar Disorder, Hx Depression, Hx Post Traumatic Stress Disorder Past Surgical History: Reports: Hx Oral Surgery. Denies: Hx Hysterectomy, Hx Pacemaker - Immunizations Immunizations up to date: Yes Hx Diphtheria, Pertussis, Tetanus Vaccination: Yes Physical Exam - Vital signs Vitals: Temp 100.9 F H 03/30/20 10:44 Course - Re-evaluation Re-evalutation: Given the above history and physical we will place the patient on the monitor, provide fluids, order the sepsis laboratory profile, and given the patient's allergies after discussion with pharmacy, administered meropenem 1 g. I do believe that the patient requires lumbar puncture to rule out a bacterial meningitis. 03/30/20 12:24 Labs initially as recorded. Lumbar puncture was performed with assistance from the nursing staff to hold the patient in the right lateral position. - Vital Signs Vital signs: Temp Pulse Resp BP Pulse Ox 99.4 F 03/30/20 12:30 - Laboratory Result Diagrams: 03/30/20 11:04 03/30/20 11:04 Laboratory results interpreted by me: 03/30/20 03/30/20 03/30/20 11:04 11:04 11:04 WBC 17.1 H RDW 14.1 H Seg Neuts % (Manual) 93 H Lymphocytes % (Manual) 6 L Monocytes % (Manual) 1 L Abs Neuts (Manual) 15.9 H PT 15.5 H Sodium 146.4 H Potassium 3.3 L Chloride 114 H Carbon Dioxide 21 L BUN 22 H Creatinine 1.58 H Est GFR ( Amer) 47 L Est GFR (MDRD) Non-Af 39 L Lactic Acid Total Bilirubin 2.0 H Direct Bilirubin 0.9 H AST 364 H ALT 245 H Creatine Kinase 1318 H 03/30/20 11:04 WBC RDW Seg Neuts % (Manual) Lymphocytes % (Manual) Monocytes % (Manual) Abs Neuts (Manual) PT Sodium Potassium Chloride Carbon Dioxide BUN Creatinine Est GFR ( Amer) Est GFR (MDRD) Non-Af Lactic Acid 2.2 H Total Bilirubin Direct Bilirubin AST ALT Creatine Kinase Procedures - Lumbar Puncture Lumbar puncture Lumbar puncture pre-procedure: Sterile PPE donned, Chloraprep applied Patient position: Lying Anesthetic type: 1% Lidocaine w/epi mL's of anesthetic: 5 Number of attempts: 2 Complications: No Critical Care Note - Critical Care Note Total time excluding time spent on procedures (mins): 45 Discharge - Discharge Clinical Impression: Altered mental status Qualifiers: Altered mental status type: unspecified Qualified Code(s): R41.82 - Altered mental status, unspecified Fever Qualifiers: Fever type: unspecified Qualified Code(s): R50.9 - Fever, unspecified Condition: Fair Disposition: ADMITTED INPATIENT Admitting Provider: Michel (Hospitalist) Unit Admitted: [facility]
[2020-03-30] MEDS ORDERED: KETAMINE HCL INJ 500 MG/10 ML VIAL IV ONE (12:12)
--- NOTE | 2020-03-30 12:55 | RADIOLOGY REPORT (SQ) ---
EXAM DESCRIPTION: CT HEAD WITHOUT IMAGES COMPLETED DATE/TIME: 03/30/2020 12:46 pm REASON FOR STUDY: 8; AMS COMPARISON: 05/02/2013. TECHNIQUE: Axial images acquired through the brain without intravenous contrast. Images reviewed wi th bone, brain and subdural windows. Additional sagittal and coronal reconstructions were generated. Images stored on PACS. All CT scanners at this facility use dose modulation, iterative reconstruction, and/or weight based d osing when appropriate to reduce radiation dose to as low as reasonably achievable (ALARA). [facility]: Dose Right [facility]: CareDose [facility]: Dose Right [facility]: Teradose 4D [facility]: Smart [employer] RADIATION DOSE: CT Rad equipment meets quality standard of care and radiation dose reduction techniq ues were employed. CTDIvol: 53.2 mGy. DLP: 964 mGy-cm. mGy. LIMITATIONS: None. FINDINGS: VENTRICLES: Normal size and contour. CEREBRUM: No masses. No hemorrhage. No midline shift. No evidence for acute infarction. Normal gra y/white matter differentiation. No areas of low density in the white matter. CEREBELLUM: No masses. No hemorrhage. No alteration of density. No evidence for acute infarction. EXTRAAXIAL SPACES: No fluid collections. No masses. ORBITS AND GLOBE: No intra- or extraconal masses. Normal contour of globe without masses. CALVARIUM: No fracture. PARANASAL SINUSES: No fluid or mucosal thickening. SOFT TISSUES: No mass or hematoma. OTHER: No other significant finding. IMPRESSION: NORMAL BRAIN CT WITHOUT CONTRAST. EVIDENCE OF ACUTE STROKE: NO. COMMENT: Quality ID # [id number]: Final reports with documentation of one or more dose reduction techniques (e.g., Automated exposure control, adjustment of the mA and/or kV according to patient size, use of iterative reconstruction technique) TECHNICAL DOCUMENTATION: JOB ID: [id number] 2010 [employer]- All Rights Reserved Reading location - IP/workstation name: [email or web address]
[2020-03-30 13:08] LABS: GLUCOSE,CSF 46 mg/dL (40-70); PROTEIN,CSF 36 mg/dL (12-60)
[2020-03-30 13:21] LABS: APPEARANCE ALL TUBES CLEAR; COLOR ALL TUBES COLORLESS; CSF TUBE NUMBER 1; RED BLOOD CELL,CSF 163 /uL (0-10)
[2020-03-30 13:22] LABS: WHITE BLOOD CELL,CSF 2 /uL (0-5)
[2020-03-30 13:33] LABS: APPEARANCE ALL TUBES CLEAR; COLOR ALL TUBES COLORLESS; CSF TUBE NUMBER 4; RED BLOOD CELL,CSF 3 /uL (0-10)
[2020-03-30 13:34] LABS: WHITE BLOOD CELL,CSF 3 /uL (0-5)
[2020-03-30] MEDS ORDERED: ACETAMINOPHEN 325 MG TABLET PO PRN (14:14)
[2020-03-30] MEDS ORDERED: DEXTROSE 40% GEL 15 GM TUBE PO PRN ×2 (14:14)
[2020-03-30] MEDS ORDERED: GLUCAGON,HUMAN RECOMB 1 MG INJ SUBCUT PRN (14:14)
[2020-03-30] MEDS ORDERED: DEXTROSE 50%-WATER 25 GM/50 ML DISP.SYRIN IV PRN ×2 (14:14)
[2020-03-30] MEDS ORDERED: PROMETHAZINE HCL INJ 25 MG/1 ML VIAL IV PRN (14:14)
[2020-03-30] MEDS ORDERED: CEFTRIAXONE 2 GM/D5W RTU 2 GM/50 ML RTUPB IV ONE (14:18)
[2020-03-30] MEDS ORDERED: ONDANSETRON HCL INJ/PF 4 MG/2 ML SDV IV PRN (14:29)
--- NOTE | 2020-03-30 14:34 | PDOC H&P ---
History of Present Illness Admission Date/PCP: 03/30/20 14:07 Patient complains of: Brought in by EMS for altered mental status History of Present Illness: WAN BARRERA is a 29 year old female with history of IV drug abuse brought in by EMS for altered mental status patient was given ketamine 300 mg because of the safety concerns in the emergency room patient has a fever of 101 lumbar puncture was done negative for infection, found to be in [place] with elevated WBC count. Medical consult was called for admission to IMCU. In ER physician's opinion patient is appropriate for admission to IMCU. Patient is going to be admitted to IMCU. Past Medical History Cardiac Medical History: Denies: Coronary Artery Disease, Hypertension Pulmonary Medical History: Reports: Asthma - as a child Denies: Tuberculosis Neurological Medical History: Reports: Migraine Denies: Seizures Endocrine Medical History: Denies: Diabetes Mellitus Type 1, Diabetes Mellitus Type 2 GI Medical History: Reports: None Musculoskeltal Medical History: Reports: None Psychiatric Medical History: Reports: Bipolar Disorder, Depression, Post Traumatic Stress Disorder Past Surgical History Past Surgical History: Denies: Hysterectomy, Pacemaker Social History Smoking Status: Unknown if Ever Smoked Hx Recreational Drug Use: No Hx Prescription Drug Abuse: No - Advance Directive Resuscitation Status: Full Code Family History Family History: DM, Hypertension, Malignancy, Other Parental Family History Reviewed: Yes Children Family History Reviewed: Unknown Sibling(s) Family History Reviewed.: Unknown Medication/Allergy Home Medications: Naproxen 500 mg PO BID 10 Days tablet 10/13/14 Ciprofloxacin HCl [Cipro 500 mg Tablet] 500 mg PO BID #20 tablet 10/20/15 Fluconazole [Diflucan 100 Mg Tablet] 150 mg PO DAILY #1 tablet 10/24/15 Naproxen 500 mg PO Q8 #30 tablet 10/24/15 Naproxen 500 mg PO Q8 #30 tablet 10/24/15 Naproxen 500 mg PO Q8 #30 tablet 10/24/15 Phenazopyridine HCl [Pyridium 100 Mg Tablet] 100 mg PO Q8 3 Days tablet 0 10/24/15 Clindamycin HCl 150 mg PO QID #28 capsule 11/18/17 Ibuprofen 600 mg PO TID PRN #15 tablet 11/18/17 Clindamycin HCl [Cleocin 300 mg Capsule] 600 mg PO Q6 #80 cap 05/31/18 Sulfamethoxazole/Trimethoprim [Bactrim Ds Tablet] 1 each PO BID #20 tablet 11/22/18 Divalproex Sodium [Depakote] 250 mg PO BID #30 tablet. 03/31/19 Doxycycline Hyclate [Vibramycin 100 mg Tablet] 100 mg PO BID #14 tablet 10/25/19 Fluconazole [Diflucan 100 mg Tablet] 150 mg PO ONCE #1 tablet 10/25/19 Ciprofloxacin HCl [Cipro 500 mg Tablet] 500 mg PO BID 7 Days #14 tablet 12/08/19 Allergies/Adverse Reactions: cephalexin monohydrate [From Keflex] Allergy (Verified 12/08/19 13:20) promethazine HCl [From Phenergan] Allergy (Verified 12/08/19 13:20) rash vancomycin Allergy (Verified 12/08/19 13:20) Review of Systems ROS unobtainable: Due to mental status Physical Exam Vital Signs: Temp Pulse Resp BP Pulse Ox 99.4 F 22 H 101/52 L 100 03/30/20 12:30 03/30/20 13:32 03/30/20 13:32 03/30/20 13:32 Intake & Output 03/29/20 03/30/20 03/31/20 06:59 06:59 06:59 Intake Total 1000 Balance 1000 Weight 69.9 kg General appearance: PRESENT: no acute distress Head exam: PRESENT: atraumatic Eye exam: PRESENT: PERRLA, other - Pupils are constricted but reactive. Ear exam: PRESENT: normal external ear exam Mouth exam: PRESENT: moist, tongue midline Neck exam: ABSENT: carotid bruit, JVD, lymphadenopathy, thyromegaly Respiratory exam: PRESENT: decreased breath sounds Cardiovascular exam: PRESENT: RRR. ABSENT: diastolic murmur, rubs, systolic murmur GI/Abdominal exam: PRESENT: normal bowel sounds, soft. ABSENT: distended, guarding, mass, organolmegaly, rebound, tenderness Rectal exam: PRESENT: deferred Extremities exam: PRESENT: full ROM. ABSENT: calf tenderness, clubbing, pedal edema Neurological exam: PRESENT: altered, motor sensory deficit Psychiatric exam: PRESENT: agitated Results Laboratory Results: 03/30/20 11:04 03/30/20 11:04 03/30/20 03/30/20 03/30/20 11:04 11:04 11:04 WBC 17.1 H RBC 4.34 Hgb 13.4 Hct 38.7 MCV 89 MCH 30.8 MCHC 34.6 RDW 14.1 H Plt Count 208 Seg Neutrophils % Not Reportable Sodium 146.4 H Potassium 3.3 L Chloride 114 H Carbon Dioxide 21 L Anion Gap 11 BUN 22 H Creatinine 1.58 H Est GFR ( Amer) 47 L Glucose 84 Lactic Acid Calcium 9.3 Total Bilirubin 2.0 H AST 364 H Alkaline Phosphatase 93 Total Protein 8.1 Albumin 4.2 Serum HCG, Qual NEGATIVE Fluid Tube Number CSF Volume CSF Appearance CSF Color CSF WBC CSF RBC CSF Glucose CSF Total Protein 03/30/20 03/30/20 03/30/20 11:04 12:12 12:12 WBC RBC Hgb Hct MCV MCH MCHC RDW Plt Count Seg Neutrophils % Sodium Potassium Chloride Carbon Dioxide Anion Gap BUN Creatinine Est GFR ( Amer) Glucose Lactic Acid 2.2 H Calcium Total Bilirubin AST Alkaline Phosphatase Total Protein Albumin Serum HCG, Qual Fluid Tube Number 1 CSF Volume 4.0 CSF Appearance CLEAR CSF Color COLORLESS CSF WBC 2 CSF RBC 163 CSF Glucose 46 CSF Total Protein 36 03/30/20 12:12 WBC RBC Hgb Hct MCV MCH MCHC RDW Plt Count Seg Neutrophils % Sodium Potassium Chloride Carbon Dioxide Anion Gap BUN Creatinine Est GFR ( Amer) Glucose Lactic Acid Calcium Total Bilirubin AST Alkaline Phosphatase Total Protein Albumin Serum HCG, Qual Fluid Tube Number 4 CSF Volume 4.0 CSF Appearance CLEAR CSF Color COLORLESS CSF WBC 3 CSF RBC 3 CSF Glucose CSF Total Protein 03/30/20 11:04 Creatine Kinase 1318 H Impressions: Chest X-Ray 03/30/20 10:52 IMPRESSION: NO SIGNIFICANT RADIOGRAPHIC FINDING IN THE CHEST. Head CT 03/30/20 12:23 IMPRESSION: NORMAL BRAIN CT WITHOUT CONTRAST. EVIDENCE OF ACUTE STROKE: NO. Assessment and Plan - Diagnosis (1) Altered mental status Qualifiers: Altered mental status type: unspecified Qualified Code(s): R41.82 - Altered mental status, unspecified Is this a current diagnosis for this admission?: Yes Plan: 03/30/2020-patient is going admitted to [facility] for altered mental status most likely secondary to drug overdose. Urine tox is pending. To put on restraints. A GI prophylaxis DVT prophylaxis initiated. Not to give any narcotics at this time. Once a stable to request for behavioral therapy consult. CT head is negative. (2) Fever Qualifiers: Fever type: unspecified Qualified Code(s): R50.9 - Fever, unspecified Is this a current diagnosis for this admission?: Yes Plan: 03/30/2020-patient came in with fever of 101, LP is negative. To start her on IV levofloxacin 750 mg daily and clindamycin. chest x-ray negative. Plan is to request for echocardiogram tomorrow. (3) Sepsis Is this a current diagnosis for this admission?: Yes Plan: 03/30/2020-patient is admitted for sepsis. Start on IV fluids normal saline at 125 cc/h antibiotic therapy as per the pharmacy. Blood cultures urine cultures will be requested. - Time Anticipated Discharge Disposition: Home, Self Care Anticipated Discharge Timeframe: within 72 hours
[2020-03-30] MEDS: NORMAL SALINE 1000 ML 1,000 ML IV PRN (15:57)
[2020-03-30] MEDS: LEVOFLOXACIN 750 MG/D5W RTU 750 MG/150 ML RTUPB IV SCH (17:29)
--- NOTE | 2020-03-30 20:50 | EKG REPORT ---
SEVERITY:- BORDERLINE ECG - SINUS TACHYCARDIA BORDERLINE T WAVE ABNORMALITIES : Confirmed by: Alexandra Meléndez MD 30-Mar-2020 20:49:38
[2020-03-30] MEDS ORDERED: FAMOTIDINE 20 MG TABLET PO SCH (22:00)
[2020-03-30] MEDS: HEPARIN SOD (PORCINE) 5,000 UNIT/ML 1 ML VIAL SUBCUT SCH (22:39)
[2020-03-30] MEDS: PANTOPRAZOLE SODIUM 40 MG VIAL IV SCH (22:39)
[2020-03-30] MEDS: CLINDAMYCIN PHOSPHATE 750 MG in DEXTROSE 5%-WATER 100 ML IV SCH (22:43)
[2020-03-31] MEDS ORDERED: HYDROMORPHONE HCL INJ/PF 2 MG/ML AMPULE IV ONE (00:16)
[2020-03-31] MEDS ORDERED: HYDROMORPHONE HCL INJ/PF 2 MG/ML AMPULE ONE (00:21)
[2020-03-31 01:18] LABS: APPEARANCE,URINE CLOUDY; BILIRUBIN,URINE NEGATIVE (NEGATIVE); COLOR,URINE AMBER; GLUCOSE, URINE NEGATIVE (NEGATIVE); KETONES,URINE 20 mg/dL (NEGATIVE); PROTEIN,URINE 100 mg/dL (NEGATIVE); URINE SPECIFIC GRAVITY 1.026
[2020-03-31 01:23] LABS: URINE BARBITURATES SCREEN NEGATIVE; URINE BENZODIAZEPINES SCREEN NEGATIVE; URINE COCAINE SCREEN NEGATIVE; URINE MARIJUANA (THC) SCREEN NEGATIVE; URINE METHADONE SCREEN NEGATIVE; URINE PHENCYCLIDINE SCREEN NEGATIVE
[2020-03-31] MEDS: NORMAL SALINE 1000 ML 1,000 ML IV PRN ×4 (01:23→19:00)
[2020-03-31] MEDS: CLINDAMYCIN PHOSPHATE 750 MG in DEXTROSE 5%-WATER 100 ML IV SCH ×3 (05:59→21:54)
[2020-03-31] MEDS: LORAZEPAM INJ 2 MG/1 ML VIAL IV PRN (05:59)
[2020-03-31] MEDS: HEPARIN SOD (PORCINE) 5,000 UNIT/ML 1 ML VIAL SUBCUT SCH ×3 (06:00→21:54)
--- NOTE | 2020-03-31 08:40 | PDOC PROGRESS REPORT ---
Subjective Progress Note for:: 03/31/20 Subjective:: 29 year old female with history of IV drug abuse brought in by EMS for altered mental status patient was given ketamine 300 mg because of the safety concerns in the emergency room patient has a fever of 101 lumbar puncture was done negative for infection, found to be in [place] with elevated WBC count. Medical consult was called for admission to IMCU. In ER physician's opinion patient is appropriate for admission to IMCU. Patient is going to be admitted to IM. 03/31/2020-patient posted on the Facebook that she has a suicidal ideation. Patient is under IVC commitment. Psych consult was requested. Patient more alert more awake this morning able to eat. Plan is to continue IV fluids, IV antibiotic therapy. CK level went up to 3039. Reason For Visit: SEPSIS,DRUG OVERDOSE Physical Exam Vital Signs: Temp Pulse Resp BP Pulse Ox 97.5 F 78 16 101/53 L 97 03/31/20 08:03 03/31/20 07:00 03/31/20 03:26 03/31/20 03:26 03/31/20 03:26 Intake & Output 03/30/20 03/31/20 04/01/20 06:59 06:59 06:59 Intake Total 3855 1024 Output Total 550 Balance 3305 1024 Weight 76.1 kg General appearance: PRESENT: no acute distress, cooperative Head exam: PRESENT: normocephalic Eye exam: PRESENT: PERRLA Teeth exam: PRESENT: poor dentation Neck exam: ABSENT: carotid bruit, JVD, lymphadenopathy, thyromegaly Respiratory exam: PRESENT: decreased breath sounds Cardiovascular exam: PRESENT: RRR. ABSENT: diastolic murmur, rubs, systolic murmur GI/Abdominal exam: PRESENT: normal bowel sounds, soft. ABSENT: distended, guarding, mass, organolmegaly, rebound, tenderness Rectal exam: PRESENT: deferred Extremities exam: PRESENT: full ROM. ABSENT: calf tenderness, clubbing, pedal edema Neurological exam: PRESENT: alert, awake, oriented to person, oriented to place, oriented to time, oriented to situation, CN II-XII grossly intact. ABSENT: motor sensory deficit Results Laboratory Results: 03/30/20 11:04 03/30/20 11:04 03/30/20 03/30/20 03/30/20 11:04 11:04 11:04 WBC 17.1 H RBC 4.34 Hgb 13.4 Hct 38.7 MCV 89 MCH 30.8 MCHC 34.6 RDW 14.1 H Plt Count 208 Seg Neutrophils % Not Reportable Sodium 146.4 H Potassium 3.3 L Chloride 114 H Carbon Dioxide 21 L Anion Gap 11 BUN 22 H Creatinine 1.58 H Est GFR ( Amer) 47 L Glucose 84 Lactic Acid Calcium 9.3 Total Bilirubin 2.0 H AST 364 H Alkaline Phosphatase 93 Total Protein 8.1 Albumin 4.2 Serum HCG, Qual NEGATIVE Urine Color Urine Appearance Urine pH Ur Specific [place] Urine Protein Urine Glucose (UA) Urine Ketones Urine Blood Urine RBC (Auto) Fluid Tube Number CSF Volume CSF Appearance CSF Color CSF WBC CSF RBC CSF Glucose CSF Total Protein 03/30/20 03/30/20 03/30/20 11:04 12:12 12:12 WBC RBC Hgb Hct MCV MCH MCHC RDW Plt Count Seg Neutrophils % Sodium Potassium Chloride Carbon Dioxide Anion Gap BUN Creatinine Est GFR ( Amer) Glucose Lactic Acid 2.2 H Calcium Total Bilirubin AST Alkaline Phosphatase Total Protein Albumin Serum HCG, Qual Urine Color Urine Appearance Urine pH Ur Specific [place] Urine Protein Urine Glucose (UA) Urine Ketones Urine Blood Urine RBC (Auto) Fluid Tube Number 1 CSF Volume 4.0 CSF Appearance CLEAR CSF Color COLORLESS CSF WBC 2 CSF RBC 163 CSF Glucose 46 CSF Total Protein 36 03/30/20 03/30/20 03/30/20 12:12 16:50 20:10 WBC RBC Hgb Hct MCV MCH MCHC RDW Plt Count Seg Neutrophils % Sodium Potassium Chloride Carbon Dioxide Anion Gap BUN Creatinine Est GFR ( Amer) Glucose Lactic Acid 0.6 L 1.0 Calcium Total Bilirubin AST Alkaline Phosphatase Total Protein Albumin Serum HCG, Qual Urine Color Urine Appearance Urine pH Ur Specific [place] Urine Protein Urine Glucose (UA) Urine Ketones Urine Blood Urine RBC (Auto) Fluid Tube Number 4 CSF Volume 4.0 CSF Appearance CLEAR CSF Color COLORLESS CSF WBC 3 CSF RBC 3 CSF Glucose CSF Total Protein 03/31/20 00:48 WBC RBC Hgb Hct MCV MCH MCHC RDW Plt Count Seg Neutrophils % Sodium Potassium Chloride Carbon Dioxide Anion Gap BUN Creatinine Est GFR ( Amer) Glucose Lactic Acid Calcium Total Bilirubin AST Alkaline Phosphatase Total Protein Albumin Serum HCG, Qual Urine Color TREMAINE Urine Appearance CLOUDY Urine pH 5.0 Ur Specific [place] 1.026 Urine Protein 100 H Urine Glucose (UA) NEGATIVE Urine Ketones 20 H Urine Blood LARGE H Urine RBC (Auto) 7 Fluid Tube Number CSF Volume CSF Appearance CSF Color CSF WBC CSF RBC CSF Glucose CSF Total Protein 03/30/20 03/30/20 03/30/20 11:04 16:50 20:10 Creatine Kinase 1318 H 2403 H 3039 H Impressions: Chest X-Ray 03/30/20 10:52 IMPRESSION: NO SIGNIFICANT RADIOGRAPHIC FINDING IN THE CHEST. Head CT 03/30/20 12:23 IMPRESSION: NORMAL BRAIN CT WITHOUT CONTRAST. EVIDENCE OF ACUTE STROKE: NO. Assessment and Plan - Diagnosis (1) Altered mental status Qualifiers: Altered mental status type: unspecified Qualified Code(s): R41.82 - Altered mental status, unspecified Is this a current diagnosis for this admission?: Yes Plan: 03/30/2020-patient is going admitted to [facility] for altered mental status most likely secondary to drug overdose. Urine tox is pending. To put on restraints. A GI prophylaxis DVT prophylaxis initiated. Not to give any narcotics at this time. Once a stable to request for behavioral therapy consult. CT head is negative. [id number]-old female with history of IV drug abuse admitted for altered mental status possible bath salt overdose. Patient posted on the Facebook that she has a suicidal ideation presently on one-to-one observation and under IVC commitment. Psych consult was requested. Plan is to continue IV antibiotic therapy, IV fluids at this time. (2) Fever Qualifiers: Fever type: unspecified Qualified Code(s): R50.9 - Fever, unspecified Is this a current diagnosis for this admission?: Yes Plan: 03/30/2020-patient came in with fever of 101, LP is negative. To start her on IV levofloxacin 750 mg daily and clindamycin. chest x-ray negative. Plan is to request for echocardiogram tomorrow. 03/31/2020-patient came in with fever of 101 temperature today is 97.5. WBC 17,000 on admission lactic acid level is 1.0. Presently on IV levofloxacin and IV clindamycin. LP was done in the ER which was negative for meningitis. (3) Sepsis Is this a current diagnosis for this admission?: Yes Plan: 03/30/2020-patient is admitted for sepsis. Start on IV fluids normal saline at 125 cc/h antibiotic therapy as per the pharmacy. Blood cultures urine cultures will be requested. 03/31/2020-CK level went up to 3000+ to increase the IV fluids to 175 cc/h blood pressure is 1/53. Patient came in with altered mental status, fever may meet the criteria for sepsis. (4) Suicidal ideation Is this a current diagnosis for this admission?: Yes Plan: 03/31/2020-posted on [employer] that she is suicidal so she was placed on IVC commitment last night and a psych consult was requested. (5) Rhabdomyolysis Is this a current diagnosis for this admission?: Yes Plan: 03/31/2020-patient admitted with elevated CK level most likely rhabdomyolysis due to drug overdose. Her bath salt intake. Repeat CK is 3000+ this morning. Plan is to increase the IV fluids to 175 cc per hour. - Time Anticipated Discharge Disposition: Home, Self Care Anticipated Discharge Timeframe: within 24 hours
[2020-03-31] MEDS: PANTOPRAZOLE SODIUM 40 MG VIAL IV SCH ×2 (10:04→21:54)
[2020-03-31 10:38] LABS: ABSOLUTE EOSINOPHILS # (AUTO) 0.1 10^3/uL (0.0-0.6); ABSOLUTE LYMPHOCYTES (AUTO) 2.1 10^3/uL (0.5-4.7); BASOPHILS % (AUTO) 0.3 % (0-2); MEAN CORPUSCULAR HGB CONC 33.4 g/dL (32.0-36.0); TOTAL CELLS COUNTED % (AUTO) 100 %
[2020-03-31 10:52] LABS: ABSOLUTE MONOCYTES (AUTO) 0.6 10^3/uL (0.1-1.4); ABSOLUTE NEUT (AUTO) 3.7 10^3/uL (1.7-8.2); EOSINOPHILS % (AUTO) 1.1 % (0-6); LYMPHOCYTES % (AUTO) 32.4 % (13-45); MEAN CORPUSCULAR HEMOGLOBIN 29.8 pg (27.0-33.4); MEAN CORPUSCULAR VOLUME 89 fl (80-97); MONOCYTES % (AUTO) 9.7 % (3-13); PLATELET COUNT 134 10^3/uL (150-450); RED CELL DISTRIBUTION WIDTH 14.5 % (11.5-14.0); SEGMENTED NEUTROPHILS % (AUTO) 56.5 % (42-78); WHITE BLOOD COUNT 6.6 10^3/uL (4.0-10.5)
[2020-03-31 11:02] LABS: HEMOGLOBIN 11.3 g/dL (12.0-15.5)
[2020-03-31 11:04] LABS: ALBUMIN 2.9 g/dL (3.5-5.0); ALKALINE PHOSPHATASE 61 U/L (38-126); ASPARTATE AMINO TRANSFERASE 317 U/L (14-36); BILIRUBIN,DIRECT 0.7 mg/dL (0.0-0.4); BILIRUBIN,TOTAL 1.6 mg/dL (0.2-1.3); BLOOD UREA NITROGEN 23 mg/dL (7-20); CALCIUM 8.3 mg/dL (8.4-10.2); CHLORIDE 116 mmol/L (98-107); CHOLESTEROL 82.79 mg/dL (0-200); GLUCOSE 97 mg/dL (75-110); TOTAL PROTEIN 6.1 g/dL (6.3-8.2); TRIGLYCERIDES 42 mg/dL (<150)
[2020-03-31 11:15] LABS: DIRECT LDL 42 mg/dL (<100)
[2020-03-31 11:27] LABS: ANION GAP 8 (5-19); CARBON DIOXIDE 17 mmol/L (22-30)
[2020-03-31] MEDS: LEVOFLOXACIN 750 MG/D5W RTU 750 MG/150 ML RTUPB IV SCH (17:16)
--- NOTE | 2020-03-31 20:52 | PSYCHOLOGICAL NOTE ---
Psych Note - Psych Note Date seen by psych provider: 03/31/20 Time seen by psych provider: 20:00 Psych Note: Reason for Consult: Suicidal ideation Medication recommendations per [facility]'s contracted psychiatrist Dr Karthikeyan STEPHENSON are as follows: Please discontinue Ativan Haldol 2.5mg IV twice daily as needed (please avoid high doses of antipsychotics due to QTc and abnormal EKG) Please add Trileptal 450mg PO twice daily Please add Buspar 5mg PO twice daily Impression/Plan:Patient is recommended for rescind of 24 hour petition for evaluation. At this time, the patient is denying current thoughts of wanting to and denies making suicidal comments. Clinician attempted contact to collateral but was unsuccessful. Patient's reported facebook comments appear to be from over a week ago and are vague and passive in nature (ie no plans, means or intent). Patient is currently calm and acting appropriately. She is being medical treated with 24 hour nursing staff. Patient does not meet IVC criteria per [place] GS 122 C at this time. Patient declines assistance for sobriety stating she will do it in her own time when she is ready. Please re-consult if new concerns arise. Dr. Remy was consulted on the care and management of this patient; attending physician is in agreement with recommendations and disposition.
[2020-04-01] MEDS: NORMAL SALINE 1000 ML 1,000 ML IV PRN (01:00)
[2020-04-01] MEDS: CLINDAMYCIN PHOSPHATE 750 MG in DEXTROSE 5%-WATER 100 ML IV SCH ×3 (05:30→21:53)
[2020-04-01] MEDS: HEPARIN SOD (PORCINE) 5,000 UNIT/ML 1 ML VIAL SUBCUT SCH ×3 (05:31→22:01)
[2020-04-01] MEDS: PANTOPRAZOLE SODIUM 40 MG VIAL IV SCH ×2 (09:50→21:53)
[2020-04-01] MEDS: LORAZEPAM INJ 2 MG/1 ML VIAL IV PRN ×2 (11:23→17:15)
[2020-04-01] MEDS: LEVOFLOXACIN 750 MG/D5W RTU 750 MG/150 ML RTUPB IV SCH (17:14)
[2020-04-01] MEDS ORDERED: HALOPERIDOL LACTATE INJ 5 MG/1 ML VIAL IV PRN (18:54)
--- NOTE | 2020-04-01 19:16 | PDOC PROGRESS REPORT ---
Subjective Progress Note for:: 04/01/20 Subjective:: Patient was threatening to sign AGAINST MEDICAL ADVICE now that her code serology is negative and the IVC was rescinded. When I spoke to nursing they stated that the patient changed her mind. She has been refusing re-attempts at IV placement and phlebotomy. She was nonverbal during this encounter. She did allow me to auscultate but did not provide any verbal responses to questions. Reason For Visit: SEPSIS,DRUG OVERDOSE Physical Exam Vital Signs: Temp Pulse Resp BP Pulse Ox 97.6 F 95 16 118/70 100 04/01/20 17:19 04/01/20 17:19 04/01/20 17:19 04/01/20 17:19 04/01/20 17:19 Intake & Output 03/31/20 04/01/20 04/02/20 06:59 06:59 06:59 Intake Total 3855 6731 210 Output Total 550 750 Balance 3305 5981 210 Weight 76.1 kg 82.9 kg General appearance: PRESENT: no acute distress, well-developed. ABSENT: cooperative - Exam very limited. No verbal responses. Initially she shied away from auscultation but I asked directly and she was cooperative at least for exam Head exam: PRESENT: atraumatic, normocephalic Eye exam: PRESENT: other - Unable to assess Ear exam: PRESENT: normal external ear exam. ABSENT: bleeding, drainage Mouth exam: PRESENT: other - Unable to assess Respiratory exam: PRESENT: clear to auscultation yovanny, symmetrical, unlabored. ABSENT: rales, rhonchi, tachypnea, wheezes Cardiovascular exam: PRESENT: RRR, +S1, +S2. ABSENT: bradycardia, diastolic murmur, irregular rhythm, systolic murmur, tachycardia GI/Abdominal exam: PRESENT: other - Unable to assess Neurological exam: PRESENT: alert, awake, other - Would not answer questions with verbal responses so exam was limited Psychiatric exam: PRESENT: anxious. ABSENT: agitated Focused psych exam: PRESENT: other - Unable to assess Skin exam: PRESENT: dry, normal color, warm Results Laboratory Results: 03/31/20 10:13 03/31/20 10:13 03/30/20 12:12 Cerebral Spinal Fluid - Csf Gram Stain - Final 03/30/20 03/30/20 03/30/20 11:04 16:50 20:10 Creatine Kinase 1318 H 2403 H 3039 H NT-Pro-B Natriuret Pep 03/31/20 03/31/20 10:13 10:13 Creatine Kinase 2646 H NT-Pro-B Natriuret Pep 200 H Impressions: Chest X-Ray 03/30/20 10:52 IMPRESSION: NO SIGNIFICANT RADIOGRAPHIC FINDING IN THE CHEST. Head CT 03/30/20 12:23 IMPRESSION: NORMAL BRAIN CT WITHOUT CONTRAST. EVIDENCE OF ACUTE STROKE: NO. Assessment and Plan - Diagnosis (1) Toxic encephalopathy Is this a current diagnosis for this admission?: Yes Plan: Infectious source is ruling out as blood cultures and CSF cultures are no growth so far. UA did not suggest urinary infection. There is a possibility of bath salts ingestion. Unfortunate the patient is not very interactive. We will continue to monitor. According to nursing when she does interact it is not pleasant but she does seem to be aware of her surroundings. (2) Fever Qualifiers: Fever type: unspecified Qualified Code(s): R50.9 - Fever, unspecified Is this a current diagnosis for this admission?: Yes Plan: Possibly related to affection however all cultures are negative thus far. She was started on levofloxacin and clindamycin. With her history of IV drug use endocarditis is a concern. If her blood cultures are positive we will obtain a transesophageal echocardiogram. (3) Rhabdomyolysis Qualifiers: Rhabdomyolysis type: non-traumatic Qualified Code(s): M62.82 - Rhabdom yolysis Is this a current diagnosis for this admission?: Yes Plan: Creatinine kinase was improving. No labs drawn today. Unsure if this was due to the patient refusing phlebotomy. I have ordered labs for tomorrow. Continue IV fluids for now. (4) Sepsis Qualifiers: Sepsis type: sepsis due to unspecified organism Sepsis acute organ dysfunction status: with acute organ dysfunction Severe sepsis acute organ dysfunction type: acute liver failure Hepatic coma status: without hepatic coma Severe sepsis shock status: without septic shock Qualified Code(s): A41.9 - Sepsis, unspecified organism; R65.20 - Severe sepsis without septic shock; K72.00 - Acute and subacute hepatic failure without coma Is this a current diagnosis for this admission?: Yes Plan: The elevated transaminases and bilirubin will need to be checked tomorrow. They should be trending down. We will continue IV fluids and antibiotics. Etiology of sepsis is unclear. (5) Suicidal ideation Is this a current diagnosis for this admission?: Yes Plan: Initially placed on IVC by psychiatry. They cleared her yesterday. I did institute their medication suggestions. (6) Bipolar 1 disorder, depressed Is this a current diagnosis for this admission?: Yes Plan: In reading the records evidently patient has a history of bipolar disorder. Psychiatry suggested starting Trileptal and BuSpar. I have initiated these orders. Will monitor for improvement. (7) Thrombocytopenia Is this a current diagnosis for this admission?: Yes Plan: Slightly decreased platelet count yesterday. It could be due to IV fluids. I will recheck laboratory studies tomorrow. - Time Time Spent with patient: 15-24 minutes Medications reviewed and adjusted accordingly: Yes Anticipated Discharge Disposition: Home, Self Care Anticipated Discharge Timeframe: within 72 hours
[2020-04-01] MEDS: OXCARBAZEPINE 150 MG TABLET PO SCH (21:52)
[2020-04-01] MEDS: BUSPIRONE HCL 10 MG TABLET PO SCH (21:52)
[2020-04-02] MEDS: CLINDAMYCIN PHOSPHATE 750 MG in DEXTROSE 5%-WATER 100 ML IV SCH ×2 (05:11→13:34)
[2020-04-02] MEDS: HEPARIN SOD (PORCINE) 5,000 UNIT/ML 1 ML VIAL SUBCUT SCH ×2 (05:15→13:33)
[2020-04-02 06:09] LABS: ABSOLUTE BASOPHILS # (AUTO) 0.1 10^3/uL (0.0-0.2); ABSOLUTE EOSINOPHILS # (AUTO) 0.1 10^3/uL (0.0-0.6); ABSOLUTE LYMPHOCYTES (AUTO) 2.4 10^3/uL (0.5-4.7); ABSOLUTE MONOCYTES (AUTO) 0.5 10^3/uL (0.1-1.4); ABSOLUTE NEUT (AUTO) 4.6 10^3/uL (1.7-8.2); BASOPHILS % (AUTO) 0.8 % (0-2); EOSINOPHILS % (AUTO) 0.7 % (0-6); HEMATOCRIT 31.9 % (36.0-47.0); HEMOGLOBIN 10.8 g/dL (12.0-15.5); LYMPHOCYTES % (AUTO) 31.2 % (13-45); MEAN CORPUSCULAR HEMOGLOBIN 30.4 pg (27.0-33.4); MEAN CORPUSCULAR VOLUME 90 fl (80-97); PLATELET COUNT 156 10^3/uL (150-450); RED BLOOD COUNT 3.56 10^6/uL (3.72-5.28); RED CELL DISTRIBUTION WIDTH 14.7 % (11.5-14.0); SEGMENTED NEUTROPHILS % (AUTO) 60.3 % (42-78); TOTAL CELLS COUNTED % (AUTO) 100 %; WHITE BLOOD COUNT 7.6 10^3/uL (4.0-10.5)
[2020-04-02] MEDS: NORMAL SALINE 1000 ML 1,000 ML IV PRN ×2 (06:28→13:37)
[2020-04-02 06:33] LABS: ALBUMIN 2.8 g/dL (3.5-5.0); ALKALINE PHOSPHATASE 52 U/L (38-126); ANION GAP 5 (5-19); ASPARTATE AMINO TRANSFERASE 146 U/L (14-36); BILIRUBIN,DIRECT 0.3 mg/dL (0.0-0.4); BILIRUBIN,TOTAL 0.7 mg/dL (0.2-1.3); BLOOD UREA NITROGEN 14 mg/dL (7-20); CALCIUM 8.1 mg/dL (8.4-10.2); CARBON DIOXIDE 20 mmol/L (22-30); CHLORIDE 115 mmol/L (98-107); CREATINE KINASE 557 U/L (30-135); GLUCOSE 109 mg/dL (75-110); POTASSIUM 3.7 mmol/L (3.6-5.0); TOTAL PROTEIN 5.5 g/dL (6.3-8.2)
[2020-04-02] MEDS: PANTOPRAZOLE SODIUM 40 MG VIAL IV SCH (09:39)
[2020-04-02] MEDS: BUSPIRONE HCL 10 MG TABLET PO SCH (09:41)
[2020-04-02] MEDS: OXCARBAZEPINE 150 MG TABLET PO SCH (11:17)
--- NOTE | 2020-04-02 16:52 | PDOC DISCHARGE SUMMARY ---
Impression - Admit/DC Date/PCP Admission Date/Primary Care Provider: 03/30/20 14:07 Discharge Date: 04/02/20 - Discharge Diagnosis (1) Toxic encephalopathy Is this a current diagnosis for this admission?: Yes (2) Fever Is this a current diagnosis for this admission?: Yes (3) Rhabdomyolysis Is this a current diagnosis for this admission?: Yes (4) Sepsis Is this a current diagnosis for this admission?: Yes (5) Suicidal ideation Is this a current diagnosis for this admission?: Yes (6) Bipolar 1 disorder, depressed Is this a current diagnosis for this admission?: Yes (7) Thrombocytopenia Is this a current diagnosis for this admission?: Yes - Additional Information Resuscitation Status: Full Code Discharge Activity: Activity As Tolerated, Balance Activity w/Rest Referrals: [facility] [Outside] (spoke with Inez and gave the patient information and they will contact the patient) Prescriptions: Buspirone HCl [Buspar 10 mg Tablet] 5 mg PO Q12 #15 tablet Levofloxacin [Levaquin 500 mg Tablet] 500 mg PO DAILY #7 tablet Oxcarbazepine [Trileptal 150 mg Tablet] 450 mg PO Q12 15 Days #90 tablet Home Medications: Buspirone HCl [Buspar 10 mg Tablet] 5 mg PO Q12 #15 tablet 04/02/20 Levofloxacin [Levaquin 500 mg Tablet] 500 mg PO DAILY #7 tablet 04/02/20 Oxcarbazepine [Trileptal 150 mg Tablet] 450 mg PO Q12 15 Days #90 tablet 04/02/20 History of Present Illiness History of Present Illness: WAN BARRERA is a 29 year old female with history of IV drug abuse brought in by EMS for altered mental status patient was given ketamine 300 mg because of the safety concerns in the emergency room patient has a fever of 101 lumbar puncture was done negative for infection, found to be in [place] with elevated WBC count. Medical consult was called for admission to IM. In ER physician's opinion patient is appropriate for admission to IM. Patient is going to be admitted to IM. Hospital Course Hospital Course: Sepsis resolved with fluids and antibiotics. Psychiatry did see the patient and their medication recommendations were incorporated into the treatment plan. White blood cell count normalized as did her renal function. Physical Exam Vital Signs: Temp Pulse Resp BP Pulse Ox 97.5 F 83 18 116/80 100 04/02/20 11:51 04/02/20 14:00 04/02/20 11:51 04/02/20 11:51 04/02/20 11:51 Intake & Output 04/01/20 04/02/20 04/03/20 06:59 06:59 06:59 Intake Total 6731 1070 1846 Output Total 750 0 Balance 5981 1070 1846 Weight 82.9 kg 62.8 kg General appearance: PRESENT: no acute distress, cooperative, well-developed Respiratory exam: PRESENT: clear to auscultation yovanny, symmetrical, unlabored. ABSENT: rales, rhonchi, tachypnea, wheezes Cardiovascular exam: PRESENT: RRR, +S1, +S2 GI/Abdominal exam: PRESENT: normal bowel sounds, soft. ABSENT: tenderness Neurological exam: PRESENT: alert, awake, oriented to person, oriented to place, oriented to situation Psychiatric exam: PRESENT: appropriate affect. ABSENT: agitated, anxious Results Laboratory Results: WBC 7.6 10^3/uL (4.0-10.5) 04/02/20 05:26 RBC 3.56 10^6/uL (3.72-5.28) L 04/02/20 05:26 Hgb 10.8 g/dL (12.0-15.5) L 04/02/20 05:26 Hct 31.9 % (36.0-47.0) L 04/02/20 05:26 MCV 90 fl (80-97) 04/02/20 05:26 MCH 30.4 pg (27.0-33.4) 04/02/20 05:26 MCHC 34.0 g/dL (32.0-36.0) 04/02/20 05:26 RDW 14.7 % (11.5-14.0) H 04/02/20 05:26 Plt Count 156 10^3/uL (150-450) 04/02/20 05:26 Lymph % (Auto) 31.2 % (13-45) 04/02/20 05:26 [place] % (Auto) 7.0 % (3-13) 04/02/20 05:26 Eos % (Auto) 0.7 % (0-6) 04/02/20 05:26 Baso % (Auto) 0.8 % (0-2) 04/02/20 05:26 Absolute Neuts (auto) 4.6 10^3/uL (1.7-8.2) 04/02/20 05:26 Absolute Lymphs (auto) 2.4 10^3/uL (0.5-4.7) 04/02/20 05:26 Absolute Monos (auto) 0.5 10^3/uL (0.1-1.4) 04/02/20 05:26 Absolute Eos (auto) 0.1 10^3/uL (0.0-0.6) 04/02/20 05:26 Absolute Basos (auto) 0.1 10^3/uL (0.0-0.2) 04/02/20 05:26 Total Counted 100 03/30/20 11:04 Seg Neutrophils % 60.3 % (42-78) 04/02/20 05:26 Seg Neuts % (Manual) 93 % (42-78) H 03/30/20 11:04 Lymphocytes % (Manual) 6 % (13-45) L 03/30/20 11:04 Monocytes % (Manual) 1 % (3-13) L 03/30/20 11:04 Eosinophils % (Manual) 0 % (0-6) 03/30/20 11:04 Basophils % (Manual) 0 % (0-2) 03/30/20 11:04 Abs Neuts (Manual) 15.9 10^3/uL (1.7-8.2) H 03/30/20 11:04 Abs Lymphs (Manual) 1.0 10^3/uL (0.5-4.7) 03/30/20 11:04 Abs Monocytes (Manual) 0.2 10^3/uL (0.1-1.4) 03/30/20 11:04 Absolute Eos (Manual) 0.0 10^3/uL (0.0-0.6) 03/30/20 11:04 Abs Basophils (Manual) 0.0 10^3/uL (0.0-0.2) 03/30/20 11:04 Platelet Comment ADEQUATE 03/30/20 11:04 Anisocytosis SLIGHT 03/30/20 11:04 PT 15.5 SEC (11.4-15.4) H 03/30/20 11:04 INR 1.21 03/30/20 11:04 Sodium 140.0 mmol/L (137-145) 04/02/20 05:26 Potassium 3.7 mmol/L (3.6-5.0) 04/02/20 05:26 Chloride 115 mmol/L (98-107) H 04/02/20 05:26 Carbon Dioxide 20 mmol/L (22-30) L 04/02/20 05:26 Anion Gap 5 (5-19) 04/02/20 05:26 BUN 14 mg/dL (7-20) 04/02/20 05:26 Creatinine 0.61 mg/dL (0.52-1.25) 04/02/20 05:26 Est GFR ( Amer) > 60 (>60) 04/02/20 05:26 Est GFR (MDRD) Non-Af > 60 (>60) 04/02/20 05:26 Glucose 109 mg/dL (75-110) 04/02/20 05:26 Lactic Acid 1.0 mmol/L (0.7-2.1) 03/30/20 20:10 Calcium 8.1 mg/dL (8.4-10.2) L 04/02/20 05:26 Magnesium 1.8 mg/dL (1.6-2.3) 04/02/20 05:26 Total Bilirubin 0.7 mg/dL (0.2-1.3) 04/02/20 05:26 Direct Bilirubin 0.3 mg/dL (0.0-0.4) 04/02/20 05:26 Neonat Total Bilirubin Not Reportable 04/02/20 05:26 Neonat Direct Bilirubin Not Reportable 04/02/20 05:26 Neonat Indirect Bili Not Reportable 04/02/20 05:26 AST 146 U/L (14-36) H 04/02/20 05:26 ALT 172 U/L (<35) H 04/02/20 05:26 Alkaline Phosphatase 52 U/L (38-126) 04/02/20 05:26 Creatine Kinase 557 U/L (30-135) H 04/02/20 05:26 NT-Pro-B Natriuret Pep 200 pg/mL (<125) H 03/31/20 10:13 Total Protein 5.5 g/dL (6.3-8.2) L 04/02/20 05:26 Albumin 2.8 g/dL (3.5-5.0) L 04/02/20 05:26 Triglycerides 42 mg/dL (<150) 03/31/20 10:13 Cholesterol 82.79 mg/dL (0-200) 03/31/20 10:13 LDL Cholesterol Direct 42 mg/dL (<100) 03/31/20 10:13 VLDL Cholesterol 8.0 mg/dL (10-31) L 03/31/20 10:13 HDL Cholesterol 29 mg/dL (>40) L 03/31/20 10:13 Lipase 30.0 U/L (23-300) 03/31/20 10:13 TSH 0.27 uIU/mL (0.47-4.68) L 03/31/20 10:13 Serum HCG, Qual NEGATIVE (NEGATIVE) 03/30/20 11:04 Urine Color TREMAINE 03/31/20 00:48 Urine Appearance CLOUDY 03/31/20 00:48 Urine pH 5.0 (5.0-9.0) 03/31/20 00:48 Ur Specific [place] 1.026 03/31/20 00:48 Urine Protein 100 mg/dL (NEGATIVE) H 03/31/20 00:48 Urine Glucose (UA) NEGATIVE mg/dL (NEGATIVE) 03/31/20 00:48 Urine Ketones 20 mg/dL (NEGATIVE) H 03/31/20 00:48 Urine Blood LARGE (NEGATIVE) H 03/31/20 00:48 Urine Nitrite (Reflex) NEGATIVE (NEGATIVE) 03/31/20 00:48 Urine Bilirubin NEGATIVE (NEGATIVE) 03/31/20 00:48 Urine Urobilinogen 4.0 mg/dL (<2.0) H 03/31/20 00:48 Leukocyte Esterase Rfl NEGATIVE (NEGATIVE) 03/31/20 00:48 Urine RBC (Auto) 7 /HPF 03/31/20 00:48 U Hyaline Cast (Auto) 3 /LPF 03/31/20 00:48 Urine WBC (Reflex) 12 /HPF 03/31/20 00:48 Squamous Epi Cells Auto 10 /HPF 03/31/20 00:48 Urine Mucus (Auto) MANY /LPF 03/31/20 00:48 Urine Ascorbic Acid NEGATIVE (NEGATIVE) 03/31/20 00:48 Fluid Tube Number 1 03/30/20 12:12 Fluid Tube Number 4 03/30/20 12:12 CSF Volume 4.0 CC 03/30/20 12:12 CSF Volume 4.0 CC 03/30/20 12:12 CSF Appearance CLEAR 03/30/20 12:12 CSF Appearance CLEAR 03/30/20 12:12 CSF Color COLORLESS 03/30/20 12:12 CSF Color COLORLESS 03/30/20 12:12 CSF WBC 2 /uL (0-5) 03/30/20 12:12 CSF WBC 3 /uL (0-5) 03/30/20 12:12 CSF RBC 3 /uL (0-10) 03/30/20 12:12 CSF RBC 163 /uL (0-10) 03/30/20 12:12 CSF Glucose 46 mg/dL (40-70) 03/30/20 12:12 CSF Total Protein 36 mg/dL (12-60) 03/30/20 12:12 Urine Opiates Screen UNCONFIRMED POSITIVE 03/31/20 00:48 Urine Methadone Screen NEGATIVE 03/31/20 00:48 Ur Barbiturates Screen NEGATIVE 03/31/20 00:48 Ur Phencyclidine Scrn NEGATIVE 03/31/20 00:48 Ur Amphetamines Screen 03/31/20 00:48 U Benzodiazepines Scrn NEGATIVE 03/31/20 00:48 Urine Cocaine Screen NEGATIVE 03/31/20 00:48 U Marijuana (THC) Screen NEGATIVE 03/31/20 00:48 COVID-19 Source Cancelled 03/30/20 14:22 COVID-19 (VESTA) Cancelled 03/30/20 14:22 03/31/20 10:13 NT-Pro-B Natriuret Pep 200 H Impressions: Chest X-Ray 03/30/20 10:52 IMPRESSION: NO SIGNIFICANT RADIOGRAPHIC FINDING IN THE CHEST. Head CT 03/30/20 12:23 IMPRESSION: NORMAL BRAIN CT WITHOUT CONTRAST. EVIDENCE OF ACUTE STROKE: NO. Plan Health Concerns: Substance use with underlying mental health illness. Concerns for compliance. Plan of Treatment: As above Goals: spoke with Inez and gave her the patient information and they will contact the patient--DJL Time Spent: Greater than 30 Minutes Stroke Is this a Stroke Patient?: No Acute Heart Failure - Is this a Heart Failure Patient?: No
[2020-04-02 16:59] VITALS: BP 113/66
== END 2020-04-02 17:18 | disposition home or self-care (01) | DRG 917 ==
LOC: ER 10:44 → EH 14:07 → 3N 16:15 → 3S 04-01 17:41
PROVIDERS: ADMIT Internal Medicine; ATTEND Hospitalist
PROC: 009U3ZX Drainage of Spinal Canal, Percutaneous Approach, Diagnostic (ICD-10-PCS; principal; 2020-03-30)
DX: T43.691A Poisoning by other psychostimulants, accidental (unintentional), initial encounter (principal); G92 Toxic encephalopathy; A41.9 Sepsis, unspecified organism; R65.20 Severe sepsis without septic shock; K72.00 Acute and subacute hepatic failure without coma; N17.9 Acute kidney failure, unspecified; M62.82 Rhabdomyolysis; F19.20 Other psychoactive substance dependence, uncomplicated; D69.6 Thrombocytopenia, unspecified; R41.82 Altered mental status, unspecified; G43.909 Migraine, unspecified, not intractable, without status migrainosus; F43.10 Post-traumatic stress disorder, unspecified; F32.9 Major depressive disorder, single episode, unspecified; Y92.018 Other place in single-family (private) house as the place of occurrence of the external cause; Z11.59 Encounter for screening for other viral diseases
CPT/HCPCS: 36415; 70450; 71045; 80053; 80061; 80307; 81001; 82550; 82945; 83605; 83690; 83735; 83880; 84157; 84443; 84703; 85025; 85610; 87040; 87070; 87205; 87635; 89050; 93005; 93010; 96360; 99291; C9113; C9803; J1170; J1644; J1956; J2060; J2185; J3490; J7030; J7060; J7120